=== PATIENT | female | born 2000 | race Two or more races ===

== ENCOUNTER 2022-01-31 17:05 | Observation (INO) | payer BC, OTHER ==
[~2022-01-31] VITALS: Ht 162.6 cm; Wt 95.3 kg
== END 2022-01-31 19:43 | disposition home or self-care (01) ==
LOC: LDRP 17:05
PROVIDERS: ADMIT Obstetrics & Gynecology Obstetrics; ATTEND Obstetrics & Gynecology Obstetrics
DX: O42.913 Preterm premature rupture of membranes, unspecified as to length of time between rupture and onset of labor, third trimester (principal); O62.9 Abnormality of forces of labor, unspecified; O26.893 Other specified pregnancy related conditions, third trimester; R11.0 Nausea; O99.891 Other specified diseases and conditions complicating pregnancy; M54.9 Dorsalgia, unspecified; Z3A.36 36 weeks gestation of pregnancy
CPT/HCPCS: 59025; 81002; 84112; 94760

== ENCOUNTER 2022-02-13 00:10 | Observation (INO) | payer BC ==
[2022-02-13] MEDS ORDERED: PRENCAP11 PO (00:42)
== END 2022-02-13 01:30 | disposition home or self-care (01) ==
LOC: LDRP 00:10
PROVIDERS: ADMIT Obstetrics & Gynecology Obstetrics; ATTEND Obstetrics & Gynecology Obstetrics
DX: O62.9 Abnormality of forces of labor, unspecified (principal); O99.891 Other specified diseases and conditions complicating pregnancy; M54.9 Dorsalgia, unspecified; O26.893 Other specified pregnancy related conditions, third trimester; H53.8 Other visual disturbances; Z3A.38 38 weeks gestation of pregnancy
CPT/HCPCS: 59025; 81002; 94760; G0378

== ENCOUNTER 2022-02-22 04:01 | Inpatient (IN) | payer BC ==
[~2022-02-22] VITALS: Ht 160 cm; Wt 10.0 kg
[~2022-02-22 04:01] MED LIST: PRENCAP11 PO
[2022-02-22] MEDS ORDERED: PHISODERM TOP SOLN 240ML BTL TOP PRN (04:45)
[2022-02-22] MEDS ORDERED: BUTORPHANOL TARTRATE 2 MG/1 ML VIAL IV PRN ×2 (04:45)
[2022-02-22] MEDS ORDERED: PENICILLIN G POT 5MIL/D5 50ML 50 ML IV ONE (04:45)
[2022-02-22] MEDS ORDERED: PROMETHAZINE HCL 25 MG/ML 1ML IV PRN (04:45)
[2022-02-22] MEDS ORDERED: LIDOCAINE 2%HCL (LOCAL ANESTH.) INJ 10ml MDV IJ PRN (04:45)
[2022-02-22] MEDS: LACTATED RINGER'S 1,000 ML IV SCH (05:08)
[2022-02-22 05:31] LABS: Basophils # (auto) 0.1 10 ^3/uL (0-0.2); Basophils % (auto) 0.5 % (0.0-2.0); Eosinophils # (auto) 0.1 10 ^3/uL (0-0.8); Eosinophils % (auto) 0.6 % (0.0-7.0); Hematocrit 37.1 % (36.0-46.0); Hemoglobin 12.9 g/dL (12.2-16.2); Lymphocytes # (auto) 2.6 10 ^3/uL (0.4-5.4); Lymphocytes % (auto) 18.7 % (10.0-50.0); Mean Corpuscular Hgb Conc. 34.6 g/dL (32.0-36.0); Mean Corpuscular Volume 89.6 fL (80.0-100.0); Monocytes # (auto) 0.8 10 ^3/uL (0-1.3); Monocytes % (auto) 5.7 % (0.0-12.0); Neutrophils # (auto) 10.4 10 ^3/uL (1.6-8.6); Neutrophils % (auto) 74.5 % (37.0-80.0); Nucleated Red Blood Cells % 0.1 %; Red Blood Cells 4.14 10^6/uL (4.0-5.20); Red Cell Distribution Width 13.5 % (11.8-14.3); Urine Bacteria FEW /hpf (None Seen); Urine Blood Negative /uL (Negative); Urine Mucus FEW (None Seen); Urine Specific Gravity 1.014 (1.001-1.035); Urine WBC 3 /hpf (0 - 5)
[2022-02-22 05:48] LABS: Albumin 2.6 g/dL (3.4-5.0); Calcium 8.7 mg/dL (8.5-10.1); Potassium 4.1 mmol/L (3.5-5.1)
[2022-02-22 05:49] LABS: Alcohol, Urine < 3.0 mg/dL (0-10); Amphetamine Screen, Urine NEGATIVE (NEGATIVE); Barbiturate Scree,Urine NEGATIVE (NEGATIVE); Benzodiazephine Screen, Urine NEGATIVE (NEGATIVE); Cannabinoid Screen, Urine NEGATIVE (NEGATIVE); Cocaine Screen, Urine NEGATIVE (NEGATIVE); Opiate Scree,Urine NEGATIVE (NEGATIVE); Phencyclidine Screen, Urine NEGATIVE (NEGATIVE)
[2022-02-22 05:52] LABS: Bilirubin, Total 0.2 mg/dL (0.2-1.0); Total Protein 6.1 g/dL (6.4-8.2)
[2022-02-22 05:53] LABS: INR 0.88 (0.9-1.15); Partial Thromboplastin Time 26.9 sec (24.6-33.4)
[2022-02-22] MEDS: miSOPROStol 50 MCG per PRE-CUT 1/2 TAB PO PRN ×3 (09:26→17:24)
[2022-02-22] MEDS: PENICILLIN G POTASSIUM 2,500,000 UNITS in D5W 5% 50 ML IV SCH ×4 (10:03→22:20)
[2022-02-22] MEDS ORDERED: ceFAZolin 1GM/50ML 50 ML IV ONE ×2 (19:00→19:30)
[2022-02-22] MEDS ORDERED: LIDOCAINE 2%HCL (LOCAL ANESTH.) INJ 20ML MDV ONE (19:49)
[2022-02-22] MEDS ORDERED: LACT. RINGERS/OXYTOCIN 20UNITS 500 ML IV ONE ×2 (21:30→22:00)
[2022-02-22] MEDS ORDERED: LACT. RINGERS/OXYTOCIN 20UNITS 1,000 ML IV SCH (21:30)
[2022-02-22] MEDS ORDERED: TERBUTALINE SULFATE 1 MG/ML 1ML VIAL SC PRN (21:30)
[2022-02-23] MEDS: LACTATED RINGER'S 1,000 ML IV SCH ×4 (01:30→12:45)
[2022-02-23] MEDS: PENICILLIN G POTASSIUM 2,500,000 UNITS in D5W 5% 50 ML IV SCH ×2 (02:16→05:58)
[2022-02-23] MEDS: ceFAZolin 1GM/50ML 50 ML IV SCH ×3 (03:23→19:29)
[2022-02-23 06:06] LABS: RPR Non Reactive (Non Reactive)
[2022-02-23] MEDS ORDERED: LIDOCAINE 2%HCL (LOCAL ANESTH.) INJ 20ML MDV ONE (09:07)
[2022-02-23] MEDS ORDERED: METHYLERGONOVINE MALEATE 0.2 MG/ML AMP IM ONE (09:13)
[2022-02-23] MEDS: WITCH HAZEL-GLYCERIN PAD TOP PRN (09:37)
[2022-02-23] MEDS: DERMOPLAST 60ML BOTTLE TOP PRN (09:37)
[2022-02-23] MEDS ORDERED: ONDANSETRON ODT 4 MG TAB PO PRN (12:15)
[2022-02-23] MEDS ORDERED: ACETAMINOPHEN 325 MG TAB PO PRN (12:15)
[2022-02-23] MEDS ORDERED: IBUPROFEN 600 MG TAB PO PRN (12:15)
[2022-02-23 15:00] VITALS: BP 123/56
[2022-02-23 19:00] VITALS: BP 124/71
[2022-02-23] MEDS ORDERED: DOCUSATE SOD 100 MG CAP PO SCH (22:00)
[2022-02-23 23:10] VITALS: BP 111/53
[2022-02-24 03:12] VITALS: BP 102/55
[2022-02-24] MEDS: ceFAZolin 1GM/50ML 50 ML IV SCH (03:33)
[2022-02-24 07:01] VITALS: BP 104/63
[2022-02-24 11:00] VITALS: BP 112/59
[2022-02-24] MEDS: DERMOPLAST 60ML BOTTLE TOP PRN (11:16)
[2022-02-24] MEDS: WITCH HAZEL-GLYCERIN PAD TOP PRN (11:16)
== END 2022-02-24 13:37 | disposition home or self-care (01) | DRG 807 ==
LOC: LDRP 04:01 → OBSVTOIN 04:25 → LDRP 04:32
PROVIDERS: ADMIT Obstetrics & Gynecology Obstetrics; ATTEND Obstetrics & Gynecology Obstetrics
PROC: 3E0DXGC Introduction of Other Therapeutic Substance into Mouth and Pharynx, External Approach (ICD-10-PCS; 2022-02-22)
PROC: 10A07ZX Abortion of Products of Conception, Abortifacient, Via Natural or Artificial Opening (ICD-10-PCS; 2022-02-22)
PROC: 10E0XZZ Delivery of Products of Conception, External Approach (ICD-10-PCS; principal; 2022-02-23)
PROC: 0KQM0ZZ Repair Perineum Muscle, Open Approach (ICD-10-PCS; 2022-02-23)
DX: O69.81X0 Labor and delivery complicated by cord around neck, without compression, not applicable or unspecified (principal); Z37.0 Single live birth; O77.0 Labor and delivery complicated by meconium in amniotic fluid; O70.1 Second degree perineal laceration during delivery; Z3A.39 39 weeks gestation of pregnancy; O99.824 Streptococcus B carrier state complicating childbirth; Z20.822 Contact with and (suspected) exposure to COVID-19
CPT/HCPCS: 36415; 59025; 59409; 80053; 80307; 81001; 81002; 84112; 85025; 85610; 85730; 86592; 86850; 86900; 86901; 87426; 94760; 94762; 96360; 96361; 96365; 96366; G0378; J0690; J2540; J2590; J7060

== ENCOUNTER 2024-04-10 19:19 | Emergency (ER) | payer BC ==
[~2024-04-10] VITALS: Ht 162.6 cm; Wt 82.3 kg
--- NOTE | 2024-04-10 19:48 | ED.PDOC ---
CAD DESIGN ENGINEER HPI Comments 23-year-old female presents to ER with complaints of fall injury x1 day. Wilian trishaann reports that she is currently 18 weeks , A0 and states that she tripped over her sons toy this morning and landed on her left side onto tile and has since been experiencing intermittent left sided back pain. Denies head injury/LOC. She rates her current pain a 7/10 to left lower lumbar region with radiation towards left lower pelvic region. Denies use of medications for current symptoms. Patient presents to ER ambulatory on arrival, with steady gait, in no distress and states her OBGYN is Dr. Roberts and has been following up with Dr. Roberts as directed, denying any known complications with current . Denies headache, neck pain, sob, chest pain, abdominal pain, n/v, numbness/tingling, vaginal bleeding/changes in urination or any further symptoms/complaints Time Seen by MD: 19:46 Primary Care Provider: UNKNOWN Reviewed Notes: Nurses Notes, Medications, Allergies Allergies: Coded Allergies: NO KNOWN ALLERGIES (Unverified , 01/31/22) Home Meds Active Scripts Cephalexin Monohydrate (Cephalexin) 500 Mg Cap, 1 CAP PO QID for 7 Days, #28 CAP 0 Refills Prov:PRASANNA BOBBY 04/10/24 Acetaminophen (Acetaminophen) 500 Mg Tab, 500 MG PO Q4HPRN, #30 TAB 0 Refills Prov:PRAASNNA BOBBY 04/10/24 Reported Medications Vit W/ Fe Fum-Iron Po (Concept Dha) Cap, 1 CAP PO DAILY, #90 CAP 3 Refills 02/13/22 Information Source: Patient Past Medical History Immunizations: Current Medical History: Denies Operations (others): denies Family History Family History: Unknown Social History Smoking: Non-Smoker Alcohol: Denies ETOH Use Drugs: Denies Drug Use Lives In: Home Constitutional: denies: chills, diaphoresis, fatigue, fever, malaise, sweats, weakness, others EENTM: denies: blurred vision, double vision, ear bleeding, ear discharge, ear drainage, ear pain, ear ringing, eye pain, eye redness, hearing loss, mouth pain, mouth swelling, nasal discharge, nose bleeding, nose congestion, nose pain, photophobia, tearing, throat pain, throat swelling, voice changes, others Respiratory: denies: cough, hemoptysis, orthopnea, SOB at rest, shortness of breath, SOB with excertion, stridor, wheezing, others Cardiovascular: denies: chest pain, dizzy spells, diaphoresis, Dyspnea on exertion, edema, irregular heart beat, left arm pain, lightheadedness, palpitations, PND, syncope, others Gastrointestinal: denies: abdomen distended, abdominal pain, blood streaked bowels, constipated, diarrhea, dysphagia, difficulty swallowing, hematemesis, melena, nausea, poor appetite, poor fluid intake, rectal bleeding, rectal pain, vomiting, others Genitourinary: reports: others (As stated in HPI) Neurological: denies: dizziness, fainting, headache, left sided numbness, left sided weakness, numbness, paresthesia, pre-existing deficit, right sided numbness, right sided weakness, seizure, speech problems, tingling, tremors, weakness, others Musculoskeletal: reports: others (As stated in HPI) Integumetry: denies: bruises, change in color, change in hair/nails, dryness, laceration, lesions, lumps, rash, wounds, others Allergic/Immunocompromised: denies: Difficulty Healing, Frequent Infections, Hives, Itching, others Hematologic/Lymphatic: denies: anemia, blood clots, easy bleeding, easy bruising, swollen glands, others Endocrine: denies: excessive hunger, excessive sweating, excessive thirst, excessive urination, flushing, intolerance to cold, intolerance to heat, unexplained weight gain, unexplained weight loss, others Psychiatric: denies: anxiety, bipolar disorder, depression, hopeless, panic disorder, schizophrenia, sleepless, suicidal, others Physical Exam General Appearance: No Apparent Distress, Obese HEENT: Normal ENT Inspection, PERRL/EOMI, Pharynx Normal, TMs Normal Neck: Full Range of Motion, Non-Tender, Normal Respiratory: Chest Non-Tender, Lungs Clear, No Accessory Muscle Use, No Respiratory Distress, Normal Breath Sounds Cardiovascular: No Murmur, No Gallop, Regular Rate/Rhythm Breast Exam: Deferred Gastrointestinal: No Organomegaly, Non Tender (TTP to abdomen/pelvic region noted), No Pulsatile Mass, Normal Bowel Sounds, Soft Genitalia: Deferred Pelvic: Deferred Rectal: Deferred Extremities: Normal capillary refill, Normal range of motion Musculoskeletal : Extremity Location: Back (Slight TTP to left lower lumbar region noted. No skin changes appreciated. Steady gait noted) Neurologic: Alert, social contact worker II-XII nml as Tested, No Motor Deficits, Normal Affect, Normal Mood, No Sensory Deficits Cerebellar Function: Normal Reflexes: Normal Skin: Dry, Normal Color, Warm Peripheral Pulses: 2+ Radial (R), 2+ Radial (L), 2+ Brachial (R), 2+ Brachial (L) Lymphatic: No Adenopathy Was a procedure done? Was a procedure done?: No Sedation Sedation?: No Differential Diagnosis (RECLAMATION WORKER) Vaginal Bleeding: - Incomplete, Placenta Previa, Trauma X-Ray, Labs, Meds, VS Vital Signs Date Time Temp Pulse Resp B/P (MAP) Pulse Ox O2 Delivery O2 Flow Rate FiO2 04/10/24 20:18 98 Room Air 0 04/10/24 19:45 98.8 91 18 115/47 (69) 98 Lab Test 04/10/24 19:53 04/10/24 19:40 Range/Units White Blood Count 10.5 4.4-10.8 10^3/uL Red Blood Count 3.99 L 4.0-5.20 10^6/uL Hemoglobin 12.6 12.2-16.2 g/dL Hematocrit 35.5 L 36.0-46.0 % Mean Corpuscular Volume 89.0 80.0-100.0 fL Mean Corpuscular Hemoglobin 31.5 28.0-32.0 pg Mean Corpuscular Hemoglobin Concent 35.5 32.0-36.0 g/dL Red Cell Distribution Width 12.9 11.8-14.3 % Platelet Count 212 140-450 10^3/uL Mean Platelet Volume 8.1 6.9-10.8 fL Neutrophils (%) (Auto) 70.0 37.0-80.0 % Lymphocytes (%) (Auto) 22.5 10.0-50.0 % Monocytes (%) (Auto) 5.6 0.0-12.0 % Eosinophils (%) (Auto) 1.8 0.0-7.0 % Basophils (%) (Auto) 0.1 0.0-2.0 % Neutrophils # (Auto) 7.3 1.6-8.6 10 ^3/uL Lymphocytes # (Auto) 2.4 0.4-5.4 10 ^3/uL Monocytes # (Auto) 0.6 0-1.3 10 ^3/uL Eosinophils # (Auto) 0.2 0-0.8 10 ^3/uL Basophils # (Auto) 0 0-0.2 10 ^3/uL Nucleated Red Blood Cells 0.0 % Sodium Level 141 136-145 mmol/L Potassium Level 4.2 3.5-5.1 mmol/L Chloride Level 105 98-107 mmol/L Carbon Dioxide Level 26 20-31 mmol/L Anion Gap 10 5-15 Blood Urea Nitrogen 12 9-23 mg/dL Creatinine 0.55 0.550-1.02 mg/dL Glomerular Filtration Rate Calc 132 >90 mL/min BUN/Creatinine Ratio 21.8 H 10.0-20.0 Serum Glucose 114 H 74-106 mg/dL Calcium Level 10.1 8.7-10.4 mg/dL Beta HCG, Quantitative 21420.2 H 1.5-4.2 mIU/mL Urine Color Colorless Yellow Urine Clarity Turbid H Clear Urine pH 7.0 5.0-9.0 Urine Specific [place] 1.015 1.001-1.035 Urine Protein Negative Negative Urine Ketones Negative Negative Urine Blood Negative Negative /uL Urine Nitrite Negative Negative Urine Bilirubin Negative Negative Urine Urobilinogen Normal Negative mg/dL Urine Leukocyte Esterase 2+ Negative /uL Urine RBC <1 0 - 4 /hpf Urine WBC 4 0 - 5 /hpf Urine Squamous Epithelial Cells Few <5 /hpf Urine Amorphous Crystals Few None Seen /hpf Urine Bacteria Few H None Seen /hpf Urine Glucose Normal Normal mg/dL PATIENT: GM BERMUEDZ ACCT: [id number] UNIT: [id number] : 2000 LOC: ER ROOM / BED: / AGE / SEX: 23 / F ADM STATUS: REG ER SERVICE 45 ORDERING PHYSICIAN: PRASANNA BOBBY PROCEDURE(s): OBUS - OB ULTRASOUND COMP GTR 14 WKS REASON: 18 weeks with pelvic pain s/p fall today ORDER NUMBER(s): [id number], ACCESSION NUMBER(s): [id number] Procedure: US OB ULTRASOUND COMP GTR 14 WKS 04/10/2024 08:14 PM HISTORY: 18 weeks with pelvic pain s/p fall today COMPARISON: None TECHNIQUE: Sonogram of the gravid uterus was performed. FINDINGS: Single living intrauterine gestation. 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 The following measurements were obtained: BPD: 4.4 cm corresponding to 19 weeks and 2 days HC: 15.7 cm corresponding to 18 weeks and 4 days AC: 13.6 cm corresponding to 19 weeks and 0 day FL: 2.8 cm corresponding to 18 weeks and 4 days Average ultrasound age: 18 weeks and 6 days MINE by ultrasound: 09/05/2024 Estimated weight: 257 g IMPRESSION: 1. Single currently living intrauterine gestation, as described above. ATED BY: SHEREE STUART MD DICTATED DATE/TIME: 04/10/242101 SIGNED BY: SHEREE STUART MD SIGNED DATE/TIME: 04/10/242101 CC: CBC REVIEWED WITHOUT ANY SIGNIFICANT ABNORMALITIES BMP REVIEWED WITHOUT ANY SIGNIFICANT ABNORMALITIES BETA HCG REVIEWED URINALYSIS REVIEWED-URINE LEUKOCYTE ESTERASE 2+, URINE BLOOD NEGATIVE, URINE NITRITES NEGATIVE OB ULTRASOUND REVIEWED PATIENT REPORTED IMPROVEMENT IN SYMPTOMS AND DENIED ANY ABDOMINAL/PELVIC PAIN PRIOR TO DISCHARGE ADVISED ON REST/NO STRENUOUS ACTIVITY ADVISED TO FOLLOW UP WITH PCP AND OBGYN IN 1-2 DAYS PATIENT VERBALIZED UNDERSTANDING AND AGREEABLE WITH CURRENT PLAN OF CARE ADVISED TO RETURN TO ER IMMEDIATELY IF SYMPTOMS WORSEN Images Reviewed?: Images reviewed and evaluated by me Time of 1ST Reevaluation: 20:22 Reevaluation 1ST: N/A Time of 2ND Reevaluation: 21:24 Reevaluation 2ND: Improved Patient Education/Counseling: Diagnosis, Treatment, Prognosis, Need For Follow Up Family Education/Counseling: No Family Present Departure 1 Departure Time of Disposition: 21:30 Impression: Primary Impression: Lumbar contusion Qualified Codes: S30.0XXA - Contusion of lower back and pelvis, initial encounter Additional Impressions: Second trimester UTI (urinary tract infection) Qualified Codes: N30.00 - Acute cystitis without hematuria Disposition: HOME / SELF CARE / HOMELESS Condition: Stable e-Prescriptions Cephalexin Monohydrate (Cephalexin) 500 Mg Cap 1 CAP PO QID for 7 Days, #28 CAP 0 Refills Prov: PRASANNA BOBBY 04/10/24 Acetaminophen (Acetaminophen) 500 Mg Tab 500 MG PO Q4HPRN, #30 TAB 0 Refills Prov: PRASANNA BOBBY 04/10/24 Discharged With: Self Critical Care Note Critical Care Time?: No Stability Stability form required: No PRASANNA BOBBY Apr 10, 2024 19:48
[2024-04-10 20:22] LABS: Basophils # (auto) 0 10 ^3/uL (0-0.2); Basophils % (auto) 0.1 % (0.0-2.0); Eosinophils # (auto) 0.2 10 ^3/uL (0-0.8); Eosinophils % (auto) 1.8 % (0.0-7.0); Hematocrit 35.5 % (36.0-46.0); Hemoglobin 12.6 g/dL (12.2-16.2); Lymphocytes # (auto) 2.4 10 ^3/uL (0.4-5.4); Lymphocytes % (auto) 22.5 % (10.0-50.0); Mean Corpuscular Hemoglobin 31.5 pg (28.0-32.0); Mean Corpuscular Hgb Conc. 35.5 g/dL (32.0-36.0); Monocytes # (auto) 0.6 10 ^3/uL (0-1.3); Monocytes % (auto) 5.6 % (0.0-12.0); Neutrophils # (auto) 7.3 10 ^3/uL (1.6-8.6); Platelet Count (auto) 212 10^3/uL (140-450); Red Blood Cells 3.99 10^6/uL (4.0-5.20); Red Cell Distribution Width 12.9 % (11.8-14.3); White Blood Cell 10.5 10^3/uL (4.4-10.8)
[2024-04-10 20:54] LABS: Urine Amorphous Crystal FEW /hpf (None Seen); Urine Bacteria FEW /hpf (None Seen); Urine Blood Negative /uL (Negative); Urine Clarity Turbid (Clear); Urine Color Colorless (Yellow); Urine Protein, UAD Negative (Negative); Urine Specific Gravity 1.015 (1.001-1.035); Urine Urobilinogen Normal (Negative); Urine WBC 4 /hpf (0 - 5)
--- NOTE | 2024-04-10 21:04 | DVH ---
Procedure: US OB ULTRASOUND COMP GTR 14 WKS 04/10/2024 08:14 PM HISTORY: 18 weeks with pelvic pain s/p fall today COMPARISON: None TECHNIQUE: Sonogram of the gravid uterus was performed. FINDINGS: Single living intrauterine gestation. 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 The following measurements were obtained: BPD: 4.4 cm corresponding to 19 weeks and 2 days HC: 15.7 cm corresponding to 18 weeks and 4 days AC: 13.6 cm corresponding to 19 weeks and 0 day FL: 2.8 cm corresponding to 18 weeks and 4 days Average ultrasound age: 18 weeks and 6 days MINE by ultrasound: 09/05/2024 Estimated weight: 257 g IMPRESSION: 1. Single currently living intrauterine gestation, as described above.
[2024-04-10 21:24] LABS: Chloride 105 mmol/L (98-107); Potassium 4.2 mmol/L (3.5-5.1); Sodium 141 mmol/L (136-145)
[2024-04-10 21:25] LABS: Anion Gap 10 (5-15); Carbon Dioxide 26 mmol/L (20-31)
[2024-04-10 21:26] LABS: Calcium 10.1 mg/dL (8.7-10.4)
[2024-04-10] MEDS ORDERED: CEPH500C PO (21:30)
[2024-04-10] MEDS ORDERED: ACET500T58 PO (21:30)
[2024-04-10 21:31] LABS: BUN/Creatinine Ratio 21.8 (10.0-20.0); Blood Urea Nitrogen 12 mg/dL (9-23)
[2024-04-10 21:36] LABS: Glucose 114 mg/dL (74-106)
[2024-04-10 22:07] VITALS: BP 109/77; PULSE 76; RESP 16; TEMP 98.5; O2SAT 99
== END 2024-04-10 22:12 | disposition home or self-care (01) ==
LOC: ER 19:19
DX: O99.891 Other specified diseases and conditions complicating pregnancy (principal); N39.0 Urinary tract infection, site not specified; Z3A.18 18 weeks gestation of pregnancy; Z79.899 Other long term (current) drug therapy
CPT/HCPCS: 36415; 76805; 80048; 81001; 84702; 85025

== ENCOUNTER 2024-05-17 11:48 | Observation (INO) | payer BC ==
[~2024-05-17 11:48] MED LIST changes: +ACET500T58 PO; +CEPH500C PO
--- NOTE | 2024-05-17 13:39 | DVHDS2 ---
Physician Discharge Progress N Final Diagnosis: cramping Operations or Procedures: Operations or Procedures nst,sono Condition on Discharge: Good Disposition: Home Discharge Instructions: Diet: Regular Activity: No Restrictions, As Tolerated Medications: na Follow Up Care: Specialist: 2d Discharge Statement: "Patient was advised to return to the ER or call 911 if any headaches, dizziness, shortness of breath, chest pain, abdominal pain, bleeding, fevers, or worsening of medical condition. Patient was counseled about treatment plan, medications, possible side effects, patientverbalized understanding. All questions were answered to the best of my ability. This discharge took greater then 30 minutes in planning, reviewing documentation, counseling the patient, and discussing with other team members." ALICIA MEJÍA DO May 17, 2024 13:39
== END 2024-05-17 13:15 | disposition home or self-care (01) ==
LOC: LDRP 11:48
PROVIDERS: ADMIT Obstetrics & Gynecology; ATTEND Obstetrics & Gynecology
DX: O26.892 Other specified pregnancy related conditions, second trimester (principal); R10.9 Unspecified abdominal pain; N89.8 Other specified noninflammatory disorders of vagina; Z79.899 Other long term (current) drug therapy; Z3A.24 24 weeks gestation of pregnancy
CPT/HCPCS: 59025; 81002; G0378

== ENCOUNTER 2024-08-07 11:40 | Observation (INO) | payer BC ==
--- NOTE | 2024-08-07 13:46 | DVH ---
BIOPHYSICAL PROFILE HISTORY: r/o abruption and accreda TECHNIQUE: Multiple transabdominal real-time grayscale sonographic images through the gravid uterus of the fetus with duplex Doppler color flow and M-mode spectral analysis FINDINGS: BIOPHYSICAL PROFILE: breathing score: 2 movement score: 2 tone score: 2 Quantitative GARRET score: 2 (GARRET: 13 Cm.) Total score: 8 Single live fetus in cephalic presentation. heart rate 123 beats per minute. Grade I posterior placenta without previa or abruption IMPRESSION: Biophysical profile score: 8/8
--- NOTE | 2024-08-08 12:45 | DVHDS2 ---
Physician Discharge Progress N Final Diagnosis: bleeding 35wks Operations or Procedures: Operations or Procedures nst,sono Condition on Discharge: Good Disposition: Home Discharge Instructions: Diet: Regular Activity: Light activity Medications: na Follow Up Care: Specialist: 1w Discharge Statement: "Patient was advised to return to the ER or call 911 if any headaches, dizz iness, shortness of breath, chest pain, abdominal pain, bleeding, fevers, or worsening of medical condition. Patient was counseled about treatment plan, medications, possible side effects, patientverbalized understanding. All questions were answered to the best of my ability. This discharge took greater then 30 minutes in planning, reviewing documentation, counseling the patient, and discussing with other team members." Visit Coding OBGYN Date of Service: Aug 08, 2024 Billing Provider: ALICIA MEJÍA DO C[employer] C[employer]P Common Visit Codes: 75923-[id number] OBS CARE (HIGH) [employer] Procedure Codes: 92189-42- NON-STRESS TEST ALICIA MEJÍA DO Aug 08, 2024 12:45
== END 2024-08-07 13:46 | disposition home or self-care (01) ==
LOC: LDRP 11:40
PROVIDERS: ADMIT Obstetrics & Gynecology; ATTEND Obstetrics & Gynecology
DX: O46.93 Antepartum hemorrhage, unspecified, third trimester (principal); O62.9 Abnormality of forces of labor, unspecified; Z3A.35 35 weeks gestation of pregnancy; Z79.899 Other long term (current) drug therapy
CPT/HCPCS: 76818; 81002; 94760; G0378; 76819

== ENCOUNTER 2024-08-27 10:35 | Observation (INO) | payer BC ==
[2024-08-27 12:30] LABS: Basophils # (auto) 0 10 ^3/uL (0-0.2); Basophils % (auto) 0.3 % (0.0-2.0); Eosinophils # (auto) 0.1 10 ^3/uL (0-0.8); Eosinophils % (auto) 0.7 % (0.0-7.0); Hematocrit 35.9 % (36.0-46.0); Hemoglobin 12.4 g/dL (12.2-16.2); Lymphocytes # (auto) 1.7 10 ^3/uL (0.4-5.4); Lymphocytes % (auto) 15.1 % (10.0-50.0); Mean Corpuscular Hemoglobin 30.9 pg (28.0-32.0); Mean Corpuscular Hgb Conc. 34.5 g/dL (32.0-36.0); Mean Corpuscular Volume 89.5 fL (80.0-100.0); Monocytes # (auto) 0.6 10 ^3/uL (0-1.3); Monocytes % (auto) 4.8 % (0.0-12.0); Neutrophils # (auto) 9.2 10 ^3/uL (1.6-8.6); Neutrophils % (auto) 79.1 % (37.0-80.0); Platelet Count (auto) 212 10^3/uL (140-450); Red Blood Cells 4.01 10^6/uL (4.0-5.20); Red Cell Distribution Width 13.3 % (11.8-14.3); White Blood Cell 11.6 10^3/uL (4.4-10.8)
[2024-08-27 12:49] LABS: INR 0.93 (0.9-1.15); Prothrombin Time 9.9 sec (9.3-11.8)
[2024-08-27 12:53] LABS: Urine Bacteria FEW /hpf (None Seen); Urine Blood Negative /uL (Negative); Urine Clarity Clear (Clear); Urine Color Colorless (Yellow); Urine Protein, UAD Negative (Negative); Urine Specific Gravity 1.006 (1.001-1.035); Urine Squamous Epithelial Cell MOD /hpf (<5); Urine Urobilinogen Normal (Negative); Urine WBC 4 /HPF (0-5); Urine pH 6.5 (5.0-9.0)
[2024-08-27 12:57] LABS: Alanine Aminotransferase 13 U/L (7-40); Alkaline Phosphatase 86 U/L (46-116); Anion Gap 8 (5-15); Aspartate Aminotransferase 16 U/L (13-40); BUN/Creatinine Ratio 20.8 (10.0-20.0); Blood Urea Nitrogen 10 mg/dL (9-23); Calcium 9.7 mg/dL (8.7-10.4); Carbon Dioxide 21 mmol/L (20-31); Chloride 108 mmol/L (98-107); Glucose 113 mg/dL (74-106); Potassium 3.9 mmol/L (3.5-5.1); Sodium 137 mmol/L (136-145); Total Protein 6.6 g/dL (5.7-8.2); Uric Acid 3.8 mg/dL (3.1-7.8)
[2024-08-27 12:58] LABS: Bilirubin, Total 0.4 mg/dL (0.2-1.0)
[2024-08-27 13:04] LABS: Protein, Urine < 6.0 mg/dL (1-14)
[2024-08-27 13:06] LABS: Creatinine, Urine 17.32 mg/dL (30.0-125.0); Urine Protein/Creatinine Ratio 0.35
--- NOTE | 2024-08-27 14:26 | DVH ---
Procedure: US BIOPHYSICAL PROFILE 08/27/2024 12:37 PM Indication: PIH Comparison: US BIOPHYSICAL PROFILE on DOS: 08/07/24 Technique: Sonogram of gravid uterus utilizing grayscale and color techniques. FINDINGS: Single living intrauterine gestation. Presentation: Cephalic Placenta: Posterior heart rate: 134 bpm GARRET: 13 cm, DVP: 4.8 cm Maternal cervix: Closed, 5.4 cm in length Biophysical Profile: breathing score: 2 movement score: 2 tone: 2 Quantitative GARRET score: 2 Total score: 8/8 IMPRESSION: 1. Single living as above. 2. Biophysical profile score: 8/8.
--- NOTE | 2024-08-27 23:23 | DVHDS2 ---
Physician Discharge Progress N Final Diagnosis: NST/BPP/preeclampsia labs Operations or Procedures: Operations or Procedures 23yo IUP@38.4wks sent down from Dr. Roberts's office for PreE labs. Denies UCs/LOF/VB/FERGUSON/vision changes/RUQ pain. Endorses +FM. VSS, normotensive NST reactive kick counts and Preeclampsia warning signs reviewed. Labor precautions given and when to return to the hospital. F/u on wednesday 08/30 with [address] Roberts consulted, agrees with POC. Urine P/C ratio incalculable Laboratory Tests Test 08/27/24 11:29 08/27/24 12:15 Range/Units Urine Color Colorless Yellow Urine Clarity Clear Clear Urine pH 6.5 5.0-9.0 Urine Specific [place] 1.006 1.001-1.035 Urine Protein Negative Negative Urine Ketones Negative Negative Urine Blood Negative Negative /uL Urine Nitrite Negative Negative Urine Bilirubin Negative Negative Urine Urobilinogen Normal Negative mg/dL Urine Leukocyte Esterase 2+ Negative /uL Urine RBC 1 0 - 4 /hpf Urine Microscopic WBC 4 0-5 /HPF Urine Squamous Epithelial Cells Mod <5 /hpf Urine Bacteria Few H None Seen /hpf Urine Creatinine 17.32 L 30.0-125.0 mg/dL -U-r-i-n-e- -H-j-r-t-e-i-n-/-B-r-z-n-y-y-n-i-n-e- -R-a-t-i-o- -0-.-3-5- Urine Glucose Normal Normal mg/dL Urine Total Protein < 6.0 1-14 mg/dL White Blood Count 11.6 H 4.4-10.8 10^3/uL Red Blood Count 4.01 4.0-5.20 10^6/uL Hemoglobin 12.4 12.2-16.2 g/dL Hematocrit 35.9 L 36.0-46.0 % Mean Corpuscular Volume 89.5 80.0-100.0 fL Mean Corpuscular Hemoglobin 30.9 28.0-32.0 pg Mean Corpuscular Hemoglobin Concent 34.5 32.0-36.0 g/dL Red Cell Distribution Width 13.3 11.8-14.3 % Platelet Count 212 140-450 10^3/uL Mean Platelet Volume 7.7 6.9-10.8 fL Neutrophils (%) (Auto) 79.1 37.0-80.0 % Lymphocytes (%) (Auto) 15.1 10.0-50.0 % Monocytes (%) (Auto) 4.8 0.0-12.0 % Eosinophils (%) (Auto) 0.7 0.0-7.0 % Basophils (%) (Auto) 0.3 0.0-2.0 % Neutrophils # (Auto) 9.2 H 1.6-8.6 10 ^3/uL Lymphocytes # (Auto) 1.7 0.4-5.4 10 ^3/uL Monocytes # (Auto) 0.6 0-1.3 10 ^3/uL Eosinophils # (Auto) 0.1 0-0.8 10 ^3/uL Basophils # (Auto) 0 0-0.2 10 ^3/uL Nucleated Red Blood Cells 0.0 % Prothrombin Time 9.9 9.3-11.8 sec Prothrombin Time INR 0.93 0.9-1.15 Activated Partial Thromboplast Time 29.0 24.5-34.5 SEC Sodium Level 137 136-145 mmol/L Potassium Level 3.9 3.5-5.1 mmol/L Chloride Level 108 H 98-107 mmol/L Carbon Dioxide Level 21 20-31 mmol/L Anion Gap 8 5-15 Blood Urea Nitrogen 10 9-23 mg/dL Creatinine 0.48 L 0.550-1.02 mg/dL Glomerular Filtration Rate Calc 136 >90 mL/min BUN/Creatinine Ratio 20.8 H 10.0-20.0 Serum Glucose 113 H 74-106 mg/dL Uric Acid 3.8 3.1-7.8 mg/dL Calcium Level 9.7 8.7-10.4 mg/dL Total Bilirubin 0.4 0.2-1.0 mg/dL Aspartate Amino Transferase (AST) 16 13-40 U/L Alanine Aminotransferase (ALT) 13 7-40 U/L Alkaline Phosphatase 86 46-116 U/L Total Protein 6.6 5.7-8.2 g/dL Albumin 4.0 3.2-4.8 g/dL Other Interventions Other Interventions [facility] [id number] [facility] [address] Ph: [phone] DIAGNOSTIC IMAGING Diagnostic Imaging Report : [id number] Signed PATIENT: GM BERMUDEZ ACCT: [id number] UNIT: [id number] : 2000 LOC: [facility] ROOM / BED: TRIAGE2 / A AGE / SEX: 23 / F ADM STATUS: DIS IN SERVICE 1209 ORDERING PHYSICIAN: EMELIA LOVETT CNM PROCEDURE(s): BPP - BIOPHYSICAL PROFILE REASON: PIH ORDER NUMBER(s): [id number], ACCESSION NUMBER(s): [id number] Procedure: US BIOPHYSICAL PROFILE 08/27/2024 12:37 PM Indication: PIH Comparison: US BIOPHYSICAL PROFILE on DOS: 08/07/24 Technique: Sonogram of gravid uterus utilizing grayscale and color techniques. FINDINGS: Single living intrauterine gestation. Presentation: Cephalic Placenta: Posterior heart rate: 134 bpm GARRET: 13 cm, DVP: 4.8 cm Maternal cervix: Closed, 5.4 cm in length Biophysical Profile: breathing score: 2 movement score: 2 tone: 2 Quantitative GARRET score: 2 Total score: 8/8 IMPRESSION: 1. Single living as above. 2. Biophysical profile score: 8/8. ATED BY: SHEREE STUART MD DICTATED DATE/TIME: 08/27/241422 SIGNED BY: SHEREE STUART MD SIGNED DATE/TIME: 08/27/24 142 CC: Condition on Discharge: Stable Disposition: Home Discharge Instructions: Diet: Regular Activity: No Restrictions, As Tolerated Medications: see med list Follow Up Care: Specialist: f/u on 08/30/24 Discharge Statement: "Patient was advised to return to the ER or call 911 if any headaches, dizziness, shortness of breath, chest pain, abdominal pain, bleeding, fevers, or worsening of medical condition. Patient was counseled about treatment plan, medications, possible side effects, patientverbalized understanding. All questions were answered to the best of my ability. This discharge took greater then 30 minutes in planning, reviewing documentation, counseling the patient, and discussing with other team members." Visit Coding OBGYN Date of Service: Aug 27, 2024 Billing Provider: EMELIA LOVETT CNM PHP WEB DEVELOPER Common Visit Codes: [id number] OBS CARE (HIGH) PHP WEB DEVELOPER Procedure Codes: 36541-35- NON-STRESS TEST EMELIA LOVETT CNM Aug 27, 2024 23:23
== END 2024-08-27 14:00 | disposition home or self-care (01) ==
LOC: LDRP 10:35
PROVIDERS: ADMIT Obstetrics & Gynecology; ATTEND Obstetrics & Gynecology
DX: O13.3 Gestational [pregnancy-induced] hypertension without significant proteinuria, third trimester (principal); Z98.890 Other specified postprocedural states; Z79.899 Other long term (current) drug therapy; Z3A.38 38 weeks gestation of pregnancy
CPT/HCPCS: 36415; 76818; 80053; 81001; 81002; 82570; 84156; 84550; 85025; 85610; 85730; G0378; 76819

== ENCOUNTER 2024-08-30 06:35 | Observation (INO) | payer BC ==
[~2024-08-30] VITALS: Ht 160 cm; Wt 81.6 kg
[2024-08-30 11:37] LABS: Basophils # (auto) 0 10 ^3/uL (0-0.2); Basophils % (auto) 0.3 % (0.0-2.0); Eosinophils # (auto) 0.1 10 ^3/uL (0-0.8); Eosinophils % (auto) 0.8 % (0.0-7.0); Hematocrit 33.7 % (36.0-46.0); Hemoglobin 11.9 g/dL (12.2-16.2); Lymphocytes # (auto) 1.6 10 ^3/uL (0.4-5.4); Lymphocytes % (auto) 14.1 % (10.0-50.0); Mean Corpuscular Hemoglobin 31.5 pg (28.0-32.0); Mean Corpuscular Hgb Conc. 35.2 g/dL (32.0-36.0); Mean Corpuscular Volume 89.6 fL (80.0-100.0); Monocytes # (auto) 0.6 10 ^3/uL (0-1.3); Monocytes % (auto) 5.5 % (0.0-12.0); Neutrophils # (auto) 8.9 10 ^3/uL (1.6-8.6); Neutrophils % (auto) 79.3 % (37.0-80.0); Platelet Count (auto) 214 10^3/uL (140-450); Red Blood Cells 3.76 10^6/uL (4.0-5.20); Red Cell Distribution Width 13.3 % (11.8-14.3); White Blood Cell 11.2 10^3/uL (4.4-10.8)
[2024-08-30 11:39] LABS: Urine Bacteria FEW /hpf (None Seen); Urine Blood Negative /uL (Negative); Urine Clarity Clear (Clear); Urine Color Light-Yellow (Yellow); Urine Mucus FEW (None Seen); Urine Protein, UAD Negative (Negative); Urine Specific Gravity 1.017 (1.001-1.035); Urine Squamous Epithelial Cell FEW /hpf (<5); Urine Urobilinogen Normal (Negative); Urine WBC 16 /HPF (0-5)
[2024-08-30 11:46] LABS: Protein, Urine 9.4 mg/dL (1-14)
[2024-08-30 11:49] LABS: Creatinine, Urine 49.59 mg/dL (30.0-125.0); Urine Protein/Creatinine Ratio 0.19
[2024-08-30 11:56] LABS: INR 0.92 (0.9-1.15); Partial Thromboplastin Time 28.5 SEC (24.5-34.5); Prothrombin Time 9.8 sec (9.3-11.8)
[2024-08-30 11:58] LABS: Alanine Aminotransferase 13 U/L (7-40); Albumin 3.7 g/dL (3.2-4.8); Alkaline Phosphatase 85 U/L (46-116); Anion Gap 6 (5-15); Aspartate Aminotransferase 13 U/L (13-40); BUN/Creatinine Ratio 25.5 (10.0-20.0); Blood Urea Nitrogen 12 mg/dL (9-23); Calcium 9.3 mg/dL (8.7-10.4); Carbon Dioxide 22 mmol/L (20-31); Potassium 3.8 mmol/L (3.5-5.1); Sodium 137 mmol/L (136-145); Total Protein 5.8 g/dL (5.7-8.2); Uric Acid 3.5 mg/dL (3.1-7.8)
[2024-08-30 11:59] LABS: Bilirubin, Total 0.3 mg/dL (0.2-1.0); Chloride 109 mmol/L (98-107); Glucose 111 mg/dL (74-106)
--- NOTE | 2024-08-30 12:05 | DVH ---
Procedure: US BIOPHYSICAL PROFILE 08/30/2024 11:37 AM Indication: Rule out PIH Comparison: US BIOPHYSICAL PROFILE on DOS: 08/27/24, US BIOPHYSICAL PROFILE on DOS: 08/07/24 Technique: Sonogram of gravid uterus utilizing grayscale and color techniques. FINDINGS: Single living intrauterine gestation. Presentation: Cephalic Placenta: Posterior, grade 2 heart rate: 152 bpm GARRET: 11.8 cm, DVP: 4.8 cm Maternal cervix: Not visualized Biophysical Profile: breathing score: 2 movement score: 2 tone: 2 Quantitative GARRET score: 2 Total score: 8/8 IMPRESSION: 1. Single living as above. 2. Biophysical profile score: 8/8.
[2024-08-30 12:40] LABS: Body Surface Area 2.09
[2024-08-30 12:46] LABS: 24 Hr. Total Protein, Urine 398.6 mg/24 Hr (<149.1); Protein, Urine 11.9 mg/dL (1-14)
[2024-08-30 12:48] LABS: Creatinine Clearance, Urine 230.42 mL/min (75-115); Creatinine, Urine 56.24 mg/dL (30.0-125.0)
--- NOTE | 2024-08-31 07:48 | DVHDS2 ---
Physician Discharge Progress N Final Diagnosis: pih ruled out 37wks Operations or Procedures: Operations or Procedures nst reactive reviewed Condition on Discharge: Good Disposition: Home Discharge Instructions: Diet: Regular Activity: No Restrictions, As Tolerated Follow Up/Referral: follow up tomorrow Medications: na Follow Up Care: Specialist: 1d Discharge Statement: "Patient was advised to return to the ER or call 911 if any headaches, dizziness, shortness of breath, chest pain, abdominal pain, bleeding, fevers, or worsening of medical condition. Patient was counseled about treatment plan, medications, possible side effects, patientverbalized understanding. All questions were answered to the best of my ability. This discharge took greater then 30 minutes in planning, reviewing documentation, counseling the patient, and discussing with other team members." Visit Coding OBGYN Date of Service: August 30, 2024 Billing Provider: ALICIA MEJÍA DO TABLE GAMES DEALER Common Visit Codes: [id number] OBS CARE (HIGH) TABLE GAMES DEALER Procedure Codes: 41074-54- NON-STRESS TEST ALICIA MEJÍA DO August 31, 2024 07:48
== END 2024-08-30 13:45 | disposition home or self-care (01) ==
LOC: LDRP 10:51
PROVIDERS: ADMIT Obstetrics & Gynecology; ATTEND Obstetrics & Gynecology
DX: O13.3 Gestational [pregnancy-induced] hypertension without significant proteinuria, third trimester (principal); Z98.890 Other specified postprocedural states; Z79.899 Other long term (current) drug therapy; Z3A.37 37 weeks gestation of pregnancy
CPT/HCPCS: 36415; 76818; 80053; 81001; 81002; 82570; 82575; 84156; 84550; 85025; 85610; 85730; G0378; 59025; 76819

== ENCOUNTER 2024-08-31 12:59 | Observation (INO) | payer BC ==
--- NOTE | 2024-08-31 13:50 | DVH ---
BIOPHYSICAL PROFILE HISTORY: R/O PIH Comparison Study: TECHNIQUE: Multiple real-time grayscale sonographic images through the gravid uterus of the fetus wi th duplex Doppler color flow and M-mode spectral analysis FINDINGS: BIOPHYSICAL PROFILE: breathing score: 2 movement score: 2 tone score: 2 Quantitative GARRET score: 2 (GARRET: 14.5 Cm.) Total score: 8 Single live fetus in cephalic presentation. heart rate 155 beats per minute. No placenta without previa or abruption Posterior placenta. Biophysical profile score 8/8 IMPRESSION: 1. Biophysical profile score: 8/8
--- NOTE | 2024-08-31 18:29 | DVHDS2 ---
Discharge Summary Date of Admission August 31, 2024 at 12:59 Date of Discharge: August 31, 2024 Admitting Diagnosis Hx non reactive NST here for eval of Brief Hx & Hospital Course: Patient here for NST ultrasound Condition at Discharge: Good Final Diagnosis/Problems List Reassuring heart tones and ultrasound Discharge Disposition: Home Discharge Instruct/Medications Diet: Regular Activity: No Restrictions, As Tolerated Follow Up/Referral: As scheduled Discharge Statement: "Patient was advised to return to the ER or call 911 if any headaches, dizziness, shortness of breath, chest pain, abdominal pain, bleeding, fevers, or worsening of medical condition. Patient was counseled about treatment plan, medications, possible side effects, patient�verbalized understanding. All questions were answered to the best of my ability. This discharge took greater then 30 minutes in planning, reviewing documentation, counseling the patient, and discussing with other team members." DME: Diagnosis: Thirty-nine weeks reassuring heart tones ASSESSMENT ASSESSMENT Assessment Visit Coding OBGYN Date of Service: August 31, 2024 Billing Provider: GIULIANO MCKAY DO [employer] Common Visit Codes: 32882-RDR/OBS SAME DATE (LOW), 16401-ZAS/OBS SAME DATE (MOD), 90587-BEX/OBS SAME DATE (HIGH) [employer] Procedure Codes: 73061-09- NON-STRESS TEST GIULIANO MCKAY DO August 31, 2024 18:29
== END 2024-08-31 14:55 | disposition home or self-care (01) ==
LOC: LDRP 12:59
PROVIDERS: ADMIT Obstetrics & Gynecology; ATTEND Obstetrics & Gynecology
DX: Z36.89 Encounter for other specified antenatal screening (principal); Z98.890 Other specified postprocedural states; Z79.899 Other long term (current) drug therapy; Z3A.39 39 weeks gestation of pregnancy
CPT/HCPCS: 76818; 81002; G0378; 59025; 76819

== ENCOUNTER 2024-09-06 06:46 | Observation (INO) | payer BC ==
--- NOTE | 2024-09-06 12:01 | DVH ---
BIOPHYSICAL PROFILE HISTORY: Postdates TECHNIQUE: Multiple transabdominal real-time grayscale sonographic images through the gravid uterus of the fetus with duplex Doppler color flow and M-mode spectral analysis FINDINGS: BIOPHYSICAL PROFILE: breathing score: 2 movement score: 2 tone score: 2 Quantitative GARRET score: 2 (GARRET: 16.1 Cm.) Total score: 8 The cervix not well visualized Single live fetus in cephalic presentation. heart rate 147 beats per minute. Posterior placenta without previa or abruption IMPRESSION: Biophysical profile score: 8
--- NOTE | 2024-09-07 08:11 | DVHDS2 ---
Physician Discharge Progress N Final Diagnosis: iup at 40wks labor check Operations or Procedures: Operations or Procedures nst reactive reviwed Condition on Discharge: Good Disposition: Home Discharge Instructions: Diet: Regular Activity: No Restrictions, As Tolerated Medications: na Follow Up Care: Specialist: 2d Discharge Statement: "Patient was advised to return to the ER or call 911 if any headaches, dizziness, shortness of breath, chest pain, abdominal pain, bleeding, fevers, or worsening of medical condition. Patient was counseled about treatment plan, medications, possible side effects, patientverbalized understanding. All questions were answered to the best of my ability. This discharge took greater then 30 minutes in planning, reviewing documentation, counseling the patient, and discussing with other team members." Visit Coding OBGYN Date of Service: September 06, 2024 Billing Provider: ALICIA MEJÍA DO OFFICE SUPPORT CLERK Common Visit Codes: [id number] INP/OBS CARE (HIGH) OFFICE SUPPORT CLERK Procedure Codes: 02727-43- NON-STRESS TEST ALICIA MEJÍA DO September 07, 2024 08:11
== END 2024-09-06 12:39 | disposition home or self-care (01) ==
LOC: LDRP 10:30
PROVIDERS: ADMIT Obstetrics & Gynecology; ATTEND Obstetrics & Gynecology
DX: O60.03 Preterm labor without delivery, third trimester (principal); Z3A.40 40 weeks gestation of pregnancy; Z79.899 Other long term (current) drug therapy; Z98.890 Other specified postprocedural states
CPT/HCPCS: 76818; 81002; 94760; G0378; 76819

== ENCOUNTER 2024-09-09 06:45 | Observation (INO) | payer BC ==
[~2024-09-09] VITALS: Ht 160 cm; Wt 108.9 kg
[2024-09-09] MEDS ORDERED: PENICILLIN G POT 5MIL/D5 50ML 50 ML IV ONE (08:30)
[2024-09-09] MEDS ORDERED: NALBUPHINE HCL 10 MG/1ml INJECTION IV PRN (08:30)
[2024-09-09] MEDS ORDERED: PHISODERM TOP SOLN 240ML BTL TOP PRN (08:30)
[2024-09-09] MEDS ORDERED: LIDOCAINE 2%HCL (LOCAL ANESTH.) INJ 20ML MDV IJ PRN (08:30)
[2024-09-09] MEDS ORDERED: DERMOPLAST 60ML BOTTLE TOP PRN (08:30)
[2024-09-09] MEDS ORDERED: WITCH HAZEL-GLYCERIN PAD TOP PRN (08:30)
[2024-09-09 08:52] LABS: Urine Bacteria None Seen /hpf (None Seen)
[2024-09-09 09:01] LABS: Basophils # (auto) 0 10 ^3/uL (0-0.2); Basophils % (auto) 0.3 % (0.0-2.0); Eosinophils # (auto) 0.1 10 ^3/uL (0-0.8); Eosinophils % (auto) 0.9 % (0.0-7.0); Hematocrit 37.4 % (36.0-46.0); Hemoglobin 13.1 g/dL (12.2-16.2); Lymphocytes % (auto) 16.6 % (10.0-50.0); Mean Corpuscular Hemoglobin 31.5 pg (28.0-32.0); Mean Corpuscular Hgb Conc. 35.1 g/dL (32.0-36.0); Mean Corpuscular Volume 89.7 fL (80.0-100.0); Monocytes # (auto) 0.4 10 ^3/uL (0-1.3); Monocytes % (auto) 3.3 % (0.0-12.0); Neutrophils # (auto) 9.6 10 ^3/uL (1.6-8.6); Neutrophils % (auto) 78.9 % (37.0-80.0); Nucleated Red Blood Cells % 0.1 %; Platelet Count (auto) 212 10^3/uL (140-450); Red Blood Cells 4.17 10^6/uL (4.0-5.20); Red Cell Distribution Width 13.3 % (11.8-14.3); White Blood Cell 12.2 10^3/uL (4.4-10.8)
[2024-09-09 09:09] LABS: Urine Blood Negative /uL (Negative); Urine Clarity Turbid (Clear); Urine Color Light-Yellow (Yellow); Urine Protein, UAD Negative (Negative); Urine Specific Gravity 1.014 (1.001-1.035); Urine Squamous Epithelial Cell MOD /hpf (<5); Urine Urobilinogen Normal (Negative); Urine WBC 13 /HPF (0-5); Urine pH 6.5 (5.0-9.0)
[2024-09-09 09:14] LABS: Amphetamine Screen, Urine Neg (NEGATIVE); Barbiturate Scree,Urine Neg (NEGATIVE); Benzodiazephine Screen, Urine Neg (NEGATIVE); Cocaine Screen, Urine Neg (NEGATIVE); Opiate Scree,Urine Neg (NEGATIVE)
[2024-09-09 09:15] LABS: Cannabinoid Screen, Urine Neg (NEGATIVE); Phencyclidine Screen, Urine Neg (NEGATIVE)
[2024-09-09 09:16] LABS: Alanine Aminotransferase 16 U/L (7-40); Alkaline Phosphatase 106 U/L (46-116); Carbon Dioxide 23 mmol/L (20-31); Chloride 104 mmol/L (98-107)
[2024-09-09 09:17] LABS: Albumin 4.2 g/dL (3.2-4.8); Anion Gap 11 (5-15); Aspartate Aminotransferase 15 U/L (13-40); BUN/Creatinine Ratio 16.9 (10.0-20.0); Bilirubin, Total 0.4 mg/dL (0.2-1.0); Blood Urea Nitrogen 10 mg/dL (9-23); INR 0.92 (0.9-1.15); Partial Thromboplastin Time 27.6 SEC (24.5-34.5); Potassium 3.6 mmol/L (3.5-5.1); Prothrombin Time 9.8 sec (9.3-11.8); Sodium 138 mmol/L (136-145); Total Protein 6.8 g/dL (5.7-8.2)
[2024-09-09 09:18] LABS: Glucose 149 mg/dL (74-106)
[2024-09-09] MEDS: miSOPROStol 50 MCG per PRE-CUT 1/2 TAB PO PRN (09:35)
[2024-09-09] MEDS: LACTATED RINGER'S 1,000 ML IV SCH (09:36)
[2024-09-09] MEDS ORDERED: PENICILLIN G POTASSIUM 2,500,000 UNITS in D5W 5% 50 ML IV SCH (12:30)
--- NOTE | 2024-09-09 19:23 | DVH ---
OB ULTRASOUND, LIMITED CLINICAL INDICATION: post dates TECHNIQUE: Multiple grayscale ultrasound and M-mode images were obtained of the pelvis for evaluation of intrauterine . COMPARISON: US BIOPHYSICAL PROFILE on DOS: 09/06/24, US BIOPHYSICAL PROFILE on DOS: 08/31/24, US BIOPHYSI AKASH PROFILE on DOS: 08/30/24 FINDINGS: A single living fetus is seen in cephalic presentation. Biophysical profile: 12/06 breathin movements: 2 tone: 2 Amniotic fluid: 2 Placenta: Posterior. Amniotic fluid: Visibly normal. GARRET 11.2 cm heart rate: 150 beats/min. A complete anatomic survey was not performed on this exam. IMPRESSION: Biophysical profile: 12/06
--- NOTE | 2024-09-10 05:13 | DVHDS2 ---
Discharge Summary Date of Admission September 09, 2024 at 08:07 Date of Discharge: September 09, 2024 Admitting Diagnosis induction post dates Labs/Diagnostic Data: Laboratory Results Test 09/09/24 08:31 09/09/24 08:25 White Blood Count 12.2 10^3/uL (4.4-10.8) Red Blood Count 4.17 10^6/uL (4.0-5.20) Hemoglobin 13.1 g/dL (12.2-16.2) Hematocrit 37.4 % (36.0-46.0) Mean Corpuscular Volume 89.7 fL (80.0-100.0) Mean Corpuscular Hemoglobin 31.5 pg (28.0-32.0) Mean Corpuscular Hemoglobin Concent 35.1 g/dL (32.0-36.0) Red Cell Distribution Width 13.3 % (11.8-14.3) Platelet Count 212 10^3/uL (140-450) Mean Platelet Volume 7.9 fL (6.9-10.8) Neutrophils (%) (Auto) 78.9 % (37.0-80.0) Lymphocytes (%) (Auto) 16.6 % (10.0-50.0) Monocytes (%) (Auto) 3.3 % (0.0-12.0) Eosinophils (%) (Auto) 0.9 % (0.0-7.0) Basophils (%) (Auto) 0.3 % (0.0-2.0) Neutrophils # (Auto) 9.6 10 ^3/uL (1.6-8.6) Lymphocytes # (Auto) 2.0 10 ^3/uL (0.4-5.4) Monocytes # (Auto) 0.4 10 ^3/uL (0-1.3) Eosinophils # (Auto) 0.1 10 ^3/uL (0-0.8) Basophils # (Auto) 0 10 ^3/uL (0-0.2) Nucleated Red Blood Cells 0.1 % Prothrombin Time 9.8 sec (9.3-11.8) Prothrombin Time INR 0.92 (0.9-1.15) Activated Partial Thromboplast Time 27.6 SEC (24.5-34.5) Sodium Level 138 mmol/L (136-145) Potassium Level 3.6 mmol/L (3.5-5.1) Chloride Level 104 mmol/L (98-107) Carbon Dioxide Level 23 mmol/L (20-31) Anion Gap 11 (5-15) Blood Urea Nitrogen 10 mg/dL (9-23) Creatinine 0.59 mg/dL (0.550-1.02) Glomerular Filtration Rate Calc 130 mL/min (>90) BUN/Creatinine Ratio 16.9 (10.0-20.0) Serum Glucose 149 mg/dL (74-106) Calcium Level 10.0 mg/dL (8.7-10.4) Total Bilirubin 0.4 mg/dL (0.2-1.0) Aspartate Amino Transferase (AST) 15 U/L (13-40) Alanine Aminotransferase (ALT) 16 U/L (7-40) Alkaline Phosphatase 106 U/L (46-116) Total Protein 6.8 g/dL (5.7-8.2) Albumin 4.2 g/dL (3.2-4.8) Treponema pallidum Antibody Non-reactive (Negative) Hepatitis C Antibody Negative (Negative) Urine Color Light-yellow (Yellow) Urine Clarity Turbid (Clear) Urine pH 6.5 (5.0-9.0) Urine Specific [place] 1.014 (1.001-1.035) Urine Protein Negative (Negative) Urine Ketones Negative (Negative) Urine Blood Negative /uL (Negative) Urine Nitrite Negative (Negative) Urine Bilirubin Negative (Negative) Urine Urobilinogen Normal mg/dL (Negative) Urine Leukocyte Esterase 3+ /uL (Negative) Urine RBC 2 /hpf (0 - 4) Urine Microscopic WBC 13 /HPF (0-5) Urine Squamous Epithelial Cells Mod /hpf (<5) Urine Bacteria None seen /hpf (None Seen) Urine Glucose Normal mg/dL (Normal) Urine Opiates Screen Neg (NEGATIVE) Urine Fentanyl Screen Neg (NEGATIVE) Urine Barbiturates Screen Neg (NEGATIVE) Urine Phencyclidine Screen Neg (NEGATIVE) Urine Amphetamines Screen Neg (NEGATIVE) Urine Benzodiazepines Screen Neg (NEGATIVE) Urine Cocaine Screen Neg (NEGATIVE) Urine Cannabinoids Screen Neg (NEGATIVE) Other Laboratory Tests 09/09/24 08:31 Brief Hx & Hospital Course: Patient's cervix closed thick and high no sig response to two Cytotec therapies Operations or Procedures none Condition at Discharge: Good Final Diagnosis/Problems List reasuring US and T discharged home Discharge Disposition: Home Discharge Instruct/Medications Diet: Regular Activity: No Restrictions, As Tolerated Discharge Statement: "Patient was advised to return to the ER or call 911 if any headaches, dizziness, shortness of breath, chest pain, abdominal pain, bleeding, fevers, or worsening of medical condition. Patient was counseled about treatment plan, medications, possible side effects, patientverbalized understanding. All questions were answered to the best of my ability. This discharge took greater then 30 minutes in planning, reviewing documentation, counseling the patient, and discussing with other team members." DME: Diagnosis: Kick counts labor precautions+ ASSESSMENT ASSESSMENT Assessment Visit Coding OBGYN Date of Service: September 09, 2024 Billing Provider: GIULIANO MCKAY DO SENIOR SALES DIRECTOR Common Visit Codes: 23814-MIT/OBS SAME DATE (LOW), 72680-MDE/OBS SAME DATE (MOD), 89251-RSP/OBS SAME DATE (HIGH) SENIOR SALES DIRECTOR Procedure Codes: 09065-21- NON-STRESS TEST GIULIANO MCKAY DO September 10, 2024 05:13
--- NOTE | 2024-09-10 06:24 | DVHHP2 ---
OB CC & HPI Date Date of Admission: September 09, 2024 Chief Complaints: Reason for admission: induction of labor Past Medical History Cardiac: No pertinent Hx Pulmonary: No pertinent Hx Central Nervous System: No pertinent Hx GI: No pertinent Hx Hemotology/Oncology: No pertinent Hx Hepatobiliary: No pertinent Hx Psychiatric: No pertinent Hx Musculoskeletal: No pertinent Hx Rheumotologic: No pertinent Hx Infectious Disease: No peritnent Hx ENT: No pertinent Hx Renal/: No pertinent Hx Endocrine: No pertinent Hx Dermatology: No pertinent Hx Allergies: Coded Allergies: NO KNOWN ALLERGIES (Unverified , 01/31/22) Home Meds Active Scripts Cephalexin Monohydrate (Cephalexin) 500 Mg Cap, 1 CAP PO QID for 7 Days, #28 CAP 0 Refills Prov:PRASANNA BOBBY 04/10/24 Acetaminophen (Acetaminophen) 500 Mg Tab, 500 MG PO Q4HPRN, #30 TAB 0 Refills Prov:PRASANNA BOBBY 04/10/24 Reported Medications Vit W/ Fe Fum-Iron Po (Concept Dha) Cap, 1 CAP PO DAILY, #90 CAP 3 Refills 02/13/22 Current Medications Current Medications Medications (Trade) Dose Ordered Sig/Jayda Route PRN Reason Start Time Stop Time Status Last Admin Lactated Ringer's 1,000 ml @ 125 mls/hr Q8H IV 09/09/24 08:30 09/09/24 22:41 DC 09/09/24 09:36 Nalbuphine HCl (Nubain) 10 mg Q4HP PRN IV MODERATE PAIN (4-6 PAIN SCALE) 09/09/24 08:30 09/09/24 22:41 DC Penicillin G Potassium [id number] units/Dextrose 50 ml @ 100 mls/hr Q4H IV 09/09/24 12:30 09/09/24 22:41 DC Witch Parul (Tucks) 1 pad PRN PRN TOP PERINEAL AREA DISCOMFORT 09/09/24 08:30 09/09/24 22:41 DC Sodium Lauryl Sulfate (Phisoderm) 240 ml PRN PRN TOP PERINEAL AREA DISCOMFORT 09/09/24 08:30 09/09/24 22:41 DC Benzocaine (Dermoplast) 1 applic PRN PRN TOP PERINEAL AREA DISCOMFORT 09/09/24 08:30 09/09/24 22:41 DC Misoprostol (Cytotec) 50 mcg Q4HPRN PRN PO CERVICAL RIPENING 09/09/24 08:30 09/09/24 22:41 DC 09/09/24 13:35 Lidocaine HCl (Xylocaine) 20 ml ONCE PRN IJ PERINEAL AREA DISCOMFORT 09/09/24 08:30 09/09/24 22:41 DC Review of Systems Constitutional: No symptom reported Ears, Nose, & Throat: No symptom reported Eyes: No symptom reported Pulmonary/Respiratory: No symptom reported Cardiovascular: No symptom reported Gastrointestinal: No symptom reported Genitourinary: No symptom reported Musculoskeletal: No symptom reported Skin: No symptom reported Psychiatric: No symptom reported Endocrine: No symptom reported Hemotologic/Lymphatic: No symptom reported OB Plan Plan Admitting Diagnosis: Induction of labor POST DATES GIULIANO MCKAY DO September 10, 2024 06:24
[2024-09-11 00:07] LABS: Chlamydia Trachomatis, NAA Negative (Negative); Neisseria gonorrhoeae, NAA Negative (Negative)
== END 2024-09-09 20:14 | disposition home or self-care (01) ==
LOC: LDRP 08:07
PROVIDERS: ADMIT Obstetrics & Gynecology; ATTEND Obstetrics & Gynecology
DX: O48.0 Post-term pregnancy (principal); R79.1 Abnormal coagulation profile; Z98.890 Other specified postprocedural states; Z79.899 Other long term (current) drug therapy
CPT/HCPCS: 36415; 76818; 80053; 80307; 81001; 81002; 85025; 85610; 85730; 86780; 86803; 86850; 86900; 86901; 87491; 87591; 94762; 96360; 96361; G0378; J2540; J7060; 59025; 76819

== ENCOUNTER 2024-09-10 19:47 | Observation (INO) | payer BC ==
[2024-09-10 20:50] LABS: Fern Testing Negative
--- NOTE | 2024-09-10 21:03 | DVH ---
BIOPHYSICAL PROFILE HISTORY: Decreased movement TECHNIQUE: Multiple transabdominal real-time grayscale sonographic images through the gravid uterus of the fetus with duplex Doppler color flow and M-mode spectral analysis FINDINGS: BIOPHYSICAL PROFILE: breathing score: 2 movement score: 2 tone score: 2 Quantitative GARRET score: 2 (GARRET: 12.5 Cm.) Total score: 8/8 The cervix 3.69 cm and appears closed Single live fetus in cephalic presentation. heart rate 64 beats per minute. Posterior Grade 3 placenta without previa or abruption Single live fetus at 40 weeks 4 days Biophysical profile score 8/8 corresponding to an MINE of 09/06/2024 Estimated weight not calculated g IMPRESSION: 1. Biophysical profile score: 8/8
--- NOTE | 2024-09-10 22:20 | DVHDS2 ---
Physician Discharge Progress N Final Diagnosis: 23 yo IUP @ 40.4 weeks Intact membranes Operations or Procedures: Operations or Procedures S: Pt is a 23 yo IUP@40.4 wks in OB triage for possible leakage of fluid today 09/10/2024 @ 1700. Pt reports she had sexual intercourse before feeling the leakage of fluid, thinks it might also be urine. Pt feeling mild alpesh ogden contractions. Pt denies VB and endorses +FM. Pt denies FERGUSON/RUQ pain/visual disturbances. O: VSS Vaginal exam by RN: /-2, membrane sweep done with pts consent EFM: FHR 135 bpm, moderate variabilty with accels, no decels. Thiells: contractions q4-5minutes BPP 8/8 SSE by RN: Pooling neg and Nitrizine pos Laboratory Tests Test 09/10/24 20:00 09/10/24 21:08 Range/Units Amniotic Fluid Ferning Test Negative Placental [id number] Negative A: 23 yo @ 40.4 wks Category I EFM wellbeing established Intact amniotic membranes P: D/C home IOL scheduled on 09/14/2024 @ 2200 for post dates at [facility] per Dr. Roberts kick counts and Preeclampsia warning signs reviewed. Labor precautions given and when to return to the hospital. Other Interventions Other Interventions [place] [id number] Ph: [phone] DIAGNOSTIC IMAGING Diagnostic Imaging Report : [id number] Signed PATIENT: GM BERMUDEZ ACCT: [id number] UNIT: [id number] : 2000 LOC: [facility] ROOM / BED: TRIAGE3 / A AGE / SEX: 23 / F ADM STATUS: ADM IN SERVICE 05 ORDERING PHYSICIAN: EMELIA LOVETT CNM PROCEDURE(s): BPP - BIOPHYSICAL PROFILE REASON: Decreased movement ORDER NUMBER(s): [id number], ACCESSION NUMBER(s): [id number] BIOPHYSICAL PROFILE HISTORY: Decreased movement TECHNIQUE: Multiple transabdominal real-time grayscale sonographic images through the gravid uterus of the fetus with duplex Doppler color flow and M-mode spectral analysis FINDINGS: BIOPHYSICAL PROFILE: breathing score: 2 movement score: 2 tone score: 2 Quantitative GARRET score: 2 (GARRET: 12.5 Cm.) Total score: 8/8 The cervix 3.69 cm and appears closed Single live fetus in cephalic presentation. heart rate 64 beats per minute. Posterior Grade 3 placenta without previa or abruption Single live fetus at 40 weeks 4 days Biophysical profile score 8/8 corresponding to an MINE of 09/06/2024 Estimated weight not calculated g IMPRESSION: 1. Biophysical profile score: 8/8 ATED BY: ELLIS MYERS Jr., DO DICTATED DATE/TIME: 09/10/242100 SIGNED BY: ELLIS MYERS Jr., SIGNED DATE/TIME: 09/10/242100 Condition on Discharge: Stable Disposition: Home Discharge Instructions: Diet: Regular Activity: No Restrictions, As Tolerated Medications: see med list Follow Up Care: Specialist: IOL scheduled for 09/14/2024 @ 2200 at [facility]. Discharge Statement: "Patient was advised to return to the ER or call 911 if any headaches, dizziness, shortness of breath, chest pain, abdominal pain, bleeding, fevers, or worsening of medical condition. Patient was counseled about treatment plan, medications, possible side effects, patient�verbalized understanding. All questions were answered to the best of my ability. This discharge took greater then 30 minutes in planning, reviewing documentation, counseling the patient, and discussing with other team members." Visit Coding OBGYN Date of Service: September 11, 2024 Billing Provider: EMELIA LOVETT CNM ARC TRIMMER Common Visit Codes: [id number] INP/OBS CARE (HIGH) ARC TRIMMER Procedure Codes: 30460-46- NON-STRESS TEST SYLVIA BROWN MDWF September 10, 2024 22:20
== END 2024-09-10 22:32 | disposition home or self-care (01) ==
LOC: LDRP 19:47
PROVIDERS: ADMIT Obstetrics & Gynecology; ATTEND Obstetrics & Gynecology
DX: O36.8130 Decreased fetal movements, third trimester, not applicable or unspecified (principal); O48.0 Post-term pregnancy; Z98.890 Other specified postprocedural states; Z79.899 Other long term (current) drug therapy; Z3A.40 40 weeks gestation of pregnancy
CPT/HCPCS: 76818; 81002; 84112; 94760; G0378; Q0114; 59025; 76819

== ENCOUNTER 2024-09-14 19:06 | Observation (INO) | payer BC ==
--- NOTE | 2024-09-14 20:45 | DVH ---
ULTRASOUND BIOPHYSICAL PROFILE CLINICAL HISTORY: Post Dates COMPARISON: US BIOPHYSICAL PROFILE on DOS: 09/10/24 TECHNIQUE: Real-time grayscale, color flow and M-mode imaging of the gravid uterus is performed. FINDINGS: Single living intrauterine gestation. Cephalic presentation. heart rate 141 beats per minute. Amniotic fluid index: 13.8 cm Biophysical profile: 8 out of 8. (2 breathing, 2 activity, 2 tone, 2 GARRET) Placenta is posterior, no definite evidence of previa or abruption at this time. IMPRESSION: Biophysical profile scoring 8 out of 8.
--- NOTE | 2024-09-14 22:09 | DVHDS2 ---
Physician Discharge Progress N Final Diagnosis: IUP 41+ wk, post dates Secondary Diagnosis: Encounter for NST/BPP Operations or Procedures: Operations or Procedures NST/BPP/ GARRET all WNL Condition on Discharge: Stable Disposition: Home Discharge Instructions: Diet: Regular Activity: No Restrictions, As Tolerated Follow Up/Referral: Return in a.m for labor induction Medications: N/A Follow Up Care: Discharge Statement: "Patient was advised to return to the ER or call 911 if any headaches, dizziness, shortness of breath, chest pain, abdominal pain, bleeding, fevers, or worsening of medical condition. Patient was counseled about treatment plan, medications, possible side effects, patientverbalized understanding. All questions were answered to the best of my ability. This discharge took greater then 30 minutes in planning, reviewing documentation, counseling the patient, and discussing with other team members." Visit Coding OBGYN Date of Service: September 14, 2024 Billing Provider: SONIA COLLIER DO ELECTROCARDIOGRAPH OPERATOR Common Visit Codes: 49210-SIQ/OBS SAME DATE (MOD) SONIA COLLIER DO September 14, 2024 22:09
== END 2024-09-14 22:00 | disposition home or self-care (01) ==
LOC: LDRP 19:06
PROVIDERS: ADMIT Obstetrics & Gynecology; ATTEND Obstetrics & Gynecology
DX: O48.0 Post-term pregnancy (principal); Z98.890 Other specified postprocedural states; Z79.899 Other long term (current) drug therapy; Z3A.41 41 weeks gestation of pregnancy
CPT/HCPCS: 76818; 81002; 94760; G0378; 59025; 76819

== ENCOUNTER 2024-09-16 07:30 | Inpatient (IN) | payer BC ==
[~2024-09-16] VITALS: Ht 160 cm; Wt 108.9 kg
[2024-09-16] MEDS ORDERED: LIDOCAINE 2%HCL (LOCAL ANESTH.) INJ 20ML MDV IJ PRN (13:45)
[2024-09-16] MEDS ORDERED: BUTORPHANOL TARTRATE 2 MG/1 ML VIAL IV PRN ×2 (13:45)
[2024-09-16 14:38] LABS: Basophils # (auto) 0 10 ^3/uL (0-0.2); Basophils % (auto) 0.4 % (0.0-2.0); Eosinophils # (auto) 0.1 10 ^3/uL (0-0.8); Eosinophils % (auto) 0.7 % (0.0-7.0); Hematocrit 35.4 % (36.0-46.0); Hemoglobin 12.2 g/dL (12.2-16.2); Lymphocytes # (auto) 1.9 10 ^3/uL (0.4-5.4); Lymphocytes % (auto) 15.2 % (10.0-50.0); Mean Corpuscular Hemoglobin 31.1 pg (28.0-32.0); Mean Corpuscular Hgb Conc. 34.5 g/dL (32.0-36.0); Monocytes # (auto) 0.6 10 ^3/uL (0-1.3); Monocytes % (auto) 4.8 % (0.0-12.0); Neutrophils # (auto) 9.6 10 ^3/uL (1.6-8.6); Neutrophils % (auto) 78.9 % (37.0-80.0); Platelet Count (auto) 235 10^3/uL (140-450); Red Blood Cells 3.93 10^6/uL (4.0-5.20); Red Cell Distribution Width 13.6 % (11.8-14.3); White Blood Cell 12.2 10^3/uL (4.4-10.8)
[2024-09-16 14:54] LABS: INR 0.91 (0.9-1.15); Partial Thromboplastin Time 26.8 SEC (24.5-34.5); Prothrombin Time 9.7 sec (9.3-11.8)
[2024-09-16 14:57] LABS: Alanine Aminotransferase 12 U/L (7-40); Albumin 3.8 g/dL (3.2-4.8); Alkaline Phosphatase 101 U/L (46-116); Anion Gap 10 (5-15); Blood Urea Nitrogen 11 mg/dL (9-23); Carbon Dioxide 22 mmol/L (20-31); Chloride 106 mmol/L (98-107); Potassium 3.9 mmol/L (3.5-5.1); Sodium 138 mmol/L (136-145); Total Protein 6.1 g/dL (5.7-8.2)
[2024-09-16 14:58] LABS: Aspartate Aminotransferase 15 U/L (13-40); Bilirubin, Total 0.3 mg/dL (0.2-1.0); Glucose 145 mg/dL (74-106); Urine Amorphous Crystal FEW /hpf (None Seen); Urine Bacteria FEW /hpf (None Seen); Urine Blood Negative /uL (Negative); Urine Clarity Turbid (Clear); Urine Color Light-Yellow (Yellow); Urine Protein, UAD Negative (Negative); Urine Specific Gravity 1.018 (1.001-1.035); Urine Squamous Epithelial Cell MOD /hpf (<5); Urine Urobilinogen Normal (Negative); Urine WBC 5 /HPF (0-5); Urine pH 6.5 (5.0-9.0)
[2024-09-16 15:02] LABS: Amphetamine Screen, Urine Neg (NEGATIVE); Barbiturate Scree,Urine Neg (NEGATIVE); Benzodiazephine Screen, Urine Neg (NEGATIVE); Cannabinoid Screen, Urine Neg (NEGATIVE); Cocaine Screen, Urine Neg (NEGATIVE); Opiate Scree,Urine Neg (NEGATIVE); Phencyclidine Screen, Urine Neg (NEGATIVE)
--- NOTE | 2024-09-16 15:12 | DVH ---
LIMITED OB ULTRASOUND > 14 WKS: HISTORY: EFW TECHNIQUE: Multiple real-time grayscale images of the gravid uterus with duplex Doppler color flow an d M-mode spectral analysis. TRANSDUCER: FINDINGS: IUP single live fetus at 38 weeks 5 days based on composite averages of the BPD, head circumference, abdominal circumference and femur length Estimated weight 3721 grams heart rate 164 beats per minute GARRET 16.02 cm Cervix 3118 Cephalic Presentation Grade 3 posterior Placenta without previa or abruption. IMPRESSION: 1. IUP single live fetus at 38 weeks 5 days AUA corresponding to an MINE of 09/25/2024
--- NOTE | 2024-09-16 16:30 | DVHHP2 ---
OB CC & HPI Date Date of Admission: September 16, 2024 Patient Identification: : 2 Para: 1 EGA: 41.3 Chief Complaints: Reason for admission: induction of labor (Postdates) History of Present Complaints 23y IUP 41.4wk admitted for induction of labor for post dates EGA based on LMP c/w 8w4d US dating. uncomplicated. GBS positive EFW on admission 8lb 2oz. Past Medical History Cardiac: No pertinent Hx Pulmonary: No pertinent Hx Central Nervous System: No pertinent Hx GI: No pertinent Hx Hemotology/Oncology: No pertinent Hx Hepatobiliary: No pertinent Hx Psychiatric: No pertinent Hx Musculoskeletal: No pertinent Hx Rheumotologic: No pertinent Hx Infectious Disease: No peritnent Hx ENT: No pertinent Hx Renal/: No pertinent Hx Endocrine: No pertinent Hx Dermatology: No pertinent Hx Past Surgical History: No pertinent Hx OB History OB History Care: Good Care Ultrasounds: Normal mid trimester US Obstetrical Complications: None Medical Complications: None Allergies: Coded Allergies: NO KNOWN ALLERGIES (Unverified , 01/31/22) Home Meds Active Scripts Cephalexin Monohydrate (Cephalexin) 500 Mg Cap, 1 CAP PO QID for 7 Days, #28 CAP 0 Refills Prov:PRASANNA BOBBY 04/10/24 Acetaminophen (Acetaminophen) 500 Mg Tab, 500 MG PO Q4HPRN, #30 TAB 0 Refills Prov:PRASANNA BOBBY 04/10/24 Reported Medications Vit W/ Fe Fum-Iron Po (Concept Dha) Cap, 1 CAP PO DAILY, #90 CAP 3 Refills 02/13/22 Current Medications Current Medications Medications (Trade) Dose Ordered Sig/Jayda Route PRN Reason Start Time Stop Time Status Last Admin Lactated Ringer's 1,000 ml @ 125 mls/hr Q8H IV 09/16/24 13:45 Witch Parul (Tucks) 1 pad PRN PRN TOP PERINEAL AREA DISCOMFORT 09/16/24 13:45 Sodium Lauryl Sulfate (Phisoderm) 240 ml PRN PRN TOP PERINEAL AREA DISCOMFORT 09/16/24 13:45 Benzocaine (Dermoplast) 1 applic PRN PRN TOP PERINEAL AREA DISCOMFORT 09/16/24 13:45 Butorphanol Tartrate (Stadol Injection) 1 mg Q4HPRN PRN IV MODERATE PAIN (4-6 PAIN SCALE) 09/16/24 13:45 Butorphanol Tartrate (Stadol Injection) 2 mg Q4HPRN PRN IV SEVERE PAIN (7-10 PAIN SCALE) 09/16/24 13:45 Lidocaine HCl (Xylocaine) 20 ml ONCE PRN IJ PERINEAL AREA DISCOMFORT 09/16/24 13:45 Penicillin G Potassium [id number] units/Dextrose 50 ml @ 100 mls/hr Q4H IV 09/16/24 18:00 Family & Social History Family/Social History Blood Type: B+ Rubella: not immune RPR/VDRL: Negative GBS Status: Positive HBsAG: Negative Review of Systems Constitutional: No symptom reported Ears, Nose, & Throat: No symptom reported Eyes: No symptom reported Pulmonary/Respiratory: No symptom reported Cardiovascular: No symptom reported Gastrointestinal: No symptom reported Genitourinary: No symptom reported Musculoskeletal: No symptom reported Skin: No symptom reported Psychiatric: No symptom reported Endocrine: No symptom reported Hemotologic/Lymphatic: No symptom reported OB Admission Exam Physical Exam Vitals: Afeb VS stable HEENT: NCAT Heart: Rhythm Normal Abdomen: Gravid Extremities: Normal Reflexes: Normal Cervical Dilatation: 2cm Effacement: Other (60) Station: -3 Membranes: Intact Heart Rate: 130's Accelerations: Accelerations Present Decelerations: No Decelerations Short Term Variability: Present Senior Informatica Developer Variability: Average (6-25) Contractions on Admission: >10 Minutes Apart Intensity: Mild OB Plan Plan Admitting Diagnosis: 23y , IUP at 41.3 wk, Scheduled IOL for postdates GBS pos Morbid obesity BMI 42 EFW 8lb 2oz Categ 1 Tracing Plan: Induction Induction Methd: Cervidal protocol Other Plan: Cervidil placed at 16:25p in posterior fornix Indications for delivery discussed, informed consent obtained for treatment and delivery EFW 8lb 3oz., discussed risks of LGA, poss C/S for standard intrapartum indications reviewed. Visit Coding OBGYN Date of Service: September 16, 2024 Billing Provider: SONIA COLLIER DO TRAINING ASSISTANT Common Visit Codes: [id number] INP/OBS CARE (HIGH) SONIA COLLIER DO September 16, 2024 16:30
[2024-09-16] MEDS ORDERED: PENICILLIN G POTASSIUM 2,500,000 UNITS in D5W 5% 50 ML IV SCH (18:00)
[2024-09-16] MEDS: DERMOPLAST 60ML BOTTLE TOP PRN (18:52)
[2024-09-16] MEDS: PHISODERM TOP SOLN 240ML BTL TOP PRN (18:52)
[2024-09-16] MEDS: WITCH HAZEL-GLYCERIN PAD TOP PRN (18:52)
[2024-09-16] MEDS: LACTATED RINGER'S 1,000 ML IV SCH (18:53)
--- NOTE | 2024-09-17 02:11 | DVHPN2 ---
OB Labor Progress Note Date and Time Seen Date Seen: September 17, 2024 Time Seen: 02:09 Subjective Patient reports: No new complaints Objective Vital Signs Afeb VS stable Monitoring Method Monitoring Method: External Heart Rate Heart Rate Baseline: 130 Heart Rate Variability: Moderate Presence of FHR Accelerations: Yes Presence of FHR Decelerations: No Contractions Contractions Frequency: Occasional Contractions Intensity: Mild Contractions Resting Tone: Relaxed Membranes Membranes: Intact Vaginal Exam Vag Exam Deferred: Yes Medications Medications - Pitocin: No Medication - Epidural: No Lab Results Lab Results Current Medications Medications (Trade) Dose Ordered Sig/Jayda Start Time Stop Time Status Last Admin Dose Admin Lactated Ringer's 1,000 ml @ 125 mls/hr Q8H 09/16/24 13:45 09/16/24 18:53 125 MLS/HR Witch Parul (Tucks) 1 pad PRN PRN 09/16/24 13:45 09/16/24 18:52 1 PAD Sodium Lauryl Sulfate (Phisoderm) 240 ml PRN PRN 09/16/24 13:45 09/16/24 18:52 240 ML Benzocaine (Dermoplast) 1 applic PRN PRN 09/16/24 13:45 09/16/24 18:52 1 APPLIC Butorphanol Tartrate (Stadol Injection) 1 mg Q4HPRN PRN 09/16/24 13:45 Butorphanol Tartrate (Stadol Injection) 2 mg Q4HPRN PRN 09/16/24 13:45 Lidocaine HCl (Xylocaine) 20 ml ONCE PRN 09/16/24 13:45 Penicillin G Potassium 50 ml @ 100 mls/hr ONCE ONCE 09/16/24 14:00 09/16/24 14:32 DC Penicillin G Potassium [id number] units/Dextrose 50 ml @ 100 mls/hr Q4H 09/16/24 18:00 Dinoprostone (Cervidil Suppository) 1 supp ONCE ONCE 09/16/24 14:15 09/16/24 14:32 DC Laboratory Tests Test 09/16/24 14:26 09/16/24 14:20 Range/Units Treponema pallidum Antibody Non-reactive Negative White Blood Count 12.2 H 4.4-10.8 10^3/uL Red Blood Count 3.93 L 4.0-5.20 10^6/uL Hemoglobin 12.2 12.2-16.2 g/dL Hematocrit 35.4 L 36.0-46.0 % Mean Corpuscular Volume 90.0 80.0-100.0 fL Mean Corpuscular Hemoglobin 31.1 28.0-32.0 pg Mean Corpuscular Hemoglobin Concent 34.5 32.0-36.0 g/dL Red Cell Distribution Width 13.6 11.8-14.3 % Platelet Count 235 140-450 10^3/uL Mean Platelet Volume 7.9 6.9-10.8 fL Neutrophils (%) (Auto) 78.9 37.0-80.0 % Lymphocytes (%) (Auto) 15.2 10.0-50.0 % Monocytes (%) (Auto) 4.8 0.0-12.0 % Eosinophils (%) (Auto) 0.7 0.0-7.0 % Basophils (%) (Auto) 0.4 0.0-2.0 % Neutrophils # (Auto) 9.6 H 1.6-8.6 10 ^3/uL Lymphocytes # (Auto) 1.9 0.4-5.4 10 ^3/uL Monocytes # (Auto) 0.6 0-1.3 10 ^3/uL Eosinophils # (Auto) 0.1 0-0.8 10 ^3/uL Basophils # (Auto) 0 0-0.2 10 ^3/uL Nucleated Red Blood Cells 0.0 % Prothrombin Time 9.7 9.3-11.8 sec Prothrombin Time INR 0.91 0.9-1.15 Activated Partial Thromboplast Time 26.8 24.5-34.5 SEC Urine Color Light-yellow Yellow Urine Clarity Turbid H Clear Urine pH 6.5 5.0-9.0 Urine Specific [place]itt 1.018 1.001-1.035 Urine Protein Negative Negative Urine Ketones Negative Negative Urine Blood Negative Negative /uL Urine Nitrite Negative Negative Urine Bilirubin Negative Negative Urine Urobilinogen Normal Negative mg/dL Urine Leukocyte Esterase 1+ Negative /uL Urine RBC 1 0 - 4 /hpf Urine Microscopic WBC 5 0-5 /HPF Urine Squamous Epithelial Cells Mod <5 /hpf Urine Amorphous Crystals Few None Seen /hpf Urine Bacteria Few H None Seen /hpf Urine Glucose Normal Normal mg/dL Sodium Level 138 136-145 mmol/L Potassium Level 3.9 3.5-5.1 mmol/L Chloride Level 106 98-107 mmol/L Carbon Dioxide Level 22 20-31 mmol/L Anion Gap 10 5-15 Blood Urea Nitrogen 11 9-23 mg/dL Creatinine 0.50 L 0.550-1.02 mg/dL Glomerular Filtration Rate Calc 135 >90 mL/min BUN/Creatinine Ratio 22.0 H 10.0-20.0 Serum Glucose 145 H 74-106 mg/dL Calcium Level 9.0 8.7-10.4 mg/dL Total Bilirubin 0.3 0.2-1.0 mg/dL Aspartate Amino Transferase (AST) 15 13-40 U/L Alanine Aminotransferase (ALT) 12 7-40 U/L Alkaline Phosphatase 101 46-116 U/L Total Protein 6.1 5.7-8.2 g/dL Albumin 3.8 3.2-4.8 g/dL Urine Opiates Screen Neg NEGATIVE Urine Fentanyl Screen Neg NEGATIVE Urine Barbiturates Screen Neg NEGATIVE Urine Phencyclidine Screen Neg NEGATIVE Urine Amphetamines Screen Neg NEGATIVE Urine Benzodiazepines Screen Neg NEGATIVE Urine Cocaine Screen Neg NEGATIVE Urine Cannabinoids Screen Neg NEGATIVE Hepatitis C Antibody Negative Negative Assessment Assessment Induction of Labor IUP 41.5 wk GBS+ EFW 8lb 2oz Categ 1 Plan Plan Continue current care Cervidil to be removed after 12 hr Plan discussed with: Patient Visit Coding OBGYN Date of Service: September 17, 2024 Billing Provider: SONIA COLLIER DO HAND SANDER Common Visit Codes: [id number] INP/OBS CARE(MOD) SONIA COLLIER DO September 17, 2024 02:11
--- NOTE | 2024-09-17 09:38 | DVHPN2 ---
CNM Labor Progress Note Date and Time Seen Date Seen: September 17, 2024 Time Seen: 07:55 Subjective Patient reports: No new complaints Subjective Comment Pt consents to montemayor CRB after discussion. Objective Vital Signs VSS, see CPN Monitoring Method Monitoring Method: External Heart Rate Heart Rate Baseline: 135 Heart Rate Variability: Moderate Presence of FHR Accelerations: Yes Presence of FHR Decelerations: No Changes in Trends of Patterns: No Are all 5 Components of the FH: Yes Contractions Contractions Frequency: Other (q2-6 min) Duration of Contraction: 80 Contractions Intensity: Moderate Contractions Resting Tone: Relaxed Membranes Membranes: Intact Vaginal Exam Vag Exam Deferred: No (montemayor CRB inserted with 60ml sterile fluid) Vaginal Exam Dilation: 3 Vaginal Exam Effacement: 60 Vaginal Exam Station: -3 Medications Medications - Pitocin: No Medications - Pain Medications: PRN Medication - Epidural: No Medication - Other s/p Cervidil Lab Results Lab Results Vital Signs Date Time Temp Pulse Resp B/P (MAP) Pulse Ox O2 Delivery O2 Flow Rate FiO2 09/17/24 23:04 99.1 104 18 130/74 (92) 99 99.1 09/17/24 19:30 Room Air Current Medications Medications (Trade) Dose Ordered Sig/Jayda Start Time Stop Time Status Last Admin Dose Admin Lactated Ringer's 1,000 ml @ 125 mls/hr Q8H 09/16/24 13:45 09/17/24 16:28 DC 09/17/24 14:36 125 MLS/HR Magalys Teran (Tucks) 1 pad PRN PRN 09/16/24 13:45 09/16/24 18:52 1 PAD Sodium Lauryl Sulfate (Phisoderm) 240 ml PRN PRN 09/16/24 13:45 09/16/24 18:52 240 ML Benzocaine (Dermoplast) 1 applic PRN PRN 09/16/24 13:45 09/16/24 18:52 1 APPLIC Penicillin G Potassium 50 ml @ 100 mls/hr ONCE ONCE 09/16/24 14:00 09/16/24 14:32 DC 09/17/24 09:40 100 MLS/HR Penicillin G Potassium [id number] units/Dextrose 50 ml @ 100 mls/hr Q4H 09/16/24 18:00 09/17/24 11:56 DC Dinoprostone (Cervidil Suppository) 1 supp ONCE ONCE 09/16/24 14:15 09/16/24 14:32 DC 09/17/24 11:09 1 SUPP Oxytocin 1,000 ml @ 6 ml/hr Q24H 09/17/24 03:45 09/17/24 16:28 DC 09/17/24 11:32 6 ML/HR Oxytocin 500 ml @ 999 mls/hr Q31M ONCE 09/17/24 03:45 09/17/24 04:15 DC 09/17/24 17:26 999 MLS/HR Oxytocin 500 ml @ 125 mls/hr Q4H ONCE 09/17/24 04:15 09/17/24 08:14 DC 09/17/24 17:27 125 MLS/HR Naloxone HCl (Narcan) 0.2 mg PRN ONCE 09/17/24 10:00 09/17/24 10:26 DC Ephedrine Sulfate (ePHEDrine SULFATE) 10 mg PRN ONCE 09/17/24 10:00 09/17/24 10:26 DC Penicillin G Potassium [id number] units/Dextrose 50 ml @ 100 mls/hr Q4H 09/17/24 13:40 09/17/24 16:28 DC 09/17/24 13:36 100 MLS/HR Ibuprofen (Motrin Tablet) 600 mg Q6HP PRN 09/17/24 18:00 Acetaminophen (Tylenol Tablet) 650 mg Q6HPRN PRN 09/17/24 18:00 Prenat Multivit/ [place] Consultant/Iron/Folic Ac (Prenavite Tablet) 1 DAILY 09/18/24 10:00 Measles/Mumps/ Rubella Vaccine Live (M-M-R II W/ Diluent 10 Dos) 0.5 ml ONCE ONCE 09/18/24 07:00 09/18/24 07:01 Docusate Sodium (Colace Capsule) 200 mg HS PRN 09/17/24 20:00 09/17/24 22:17 200 MG Laboratory Tests Test 09/16/24 14:26 09/16/24 14:20 Range/Units Treponema pallidum Antibody Non-reactive Negative White Blood Count 12.2 H 4.4-10.8 10^3/uL Red Blood Count 3.93 L 4.0-5.20 10^6/uL Hemoglobin 12.2 12.2-16.2 g/dL Hematocrit 35.4 L 36.0-46.0 % Mean Corpuscular Volume 90.0 80.0-100.0 fL Mean Corpuscular Hemoglobin 31.1 28.0-32.0 pg Mean Corpuscular Hemoglobin Concent 34.5 32.0-36.0 g/dL Red Cell Distribution Width 13.6 11.8-14.3 % Platelet Count 235 140-450 10^3/uL Mean Platelet Volume 7.9 6.9-10.8 fL Neutrophils (%) (Auto) 78.9 37.0-80.0 % Lymphocytes (%) (Auto) 15.2 10.0-50.0 % Monocytes (%) (Auto) 4.8 0.0-12.0 % Eosinophils (%) (Auto) 0.7 0.0-7.0 % Basophils (%) (Auto) 0.4 0.0-2.0 % Neutrophils # (Auto) 9.6 H 1.6-8.6 10 ^3/uL Lymphocytes # (Auto) 1.9 0.4-5.4 10 ^3/uL Monocytes # (Auto) 0.6 0-1.3 10 ^3/uL Eosinophils # (Auto) 0.1 0-0.8 10 ^3/uL Basophils # (Auto) 0 0-0.2 10 ^3/uL Nucleated Red Blood Cells 0.0 % Prothrombin Time 9.7 9.3-11.8 sec Prothrombin Time INR 0.91 0.9-1.15 Activated Partial Thromboplast Time 26.8 24.5-34.5 SEC Urine Color Light-yellow Yellow Urine Clarity Turbid H Clear Urine pH 6.5 5.0-9.0 Urine Specific [place] 1.018 1.001-1.035 Urine Protein Negative Negative Urine Ketones Negative Negative Urine Blood Negative Negative /uL Urine Nitrite Negative Negative Urine Bilirubin Negative Negative Urine Urobilinogen Normal Negative mg/dL Urine Leukocyte Esterase 1+ Negative /uL Urine RBC 1 0 - 4 /hpf Urine Microscopic WBC 5 0-5 /HPF Urine Squamous Epithelial Cells Mod <5 /hpf Urine Amorphous Crystals Few None Seen /hpf Urine Bacteria Few H None Seen /hpf Urine Glucose Normal Normal mg/dL Sodium Level 138 136-145 mmol/L Potassium Level 3.9 3.5-5.1 mmol/L Chloride Level 106 98-107 mmol/L Carbon Dioxide Level 22 20-31 mmol/L Anion Gap 10 5-15 Blood Urea Nitrogen 11 9-23 mg/dL Creatinine 0.50 L 0.550-1.02 mg/dL Glomerular Filtration Rate Calc 135 >90 mL/min BUN/Creatinine Ratio 22.0 H 10.0-20.0 Serum Glucose 145 H 74-106 mg/dL Calcium Level 9.0 8.7-10.4 mg/dL Total Bilirubin 0.3 0.2-1.0 mg/dL Aspartate Amino Transferase (AST) 15 13-40 U/L Alanine Aminotransferase (ALT) 12 7-40 U/L Alkaline Phosphatase 101 46-116 U/L Total Protein 6.1 5.7-8.2 g/dL Albumin 3.8 3.2-4.8 g/dL Urine Opiates Screen Neg NEGATIVE Urine Fentanyl Screen Neg NEGATIVE Urine Barbiturates Screen Neg NEGATIVE Urine Phencyclidine Screen Neg NEGATIVE Urine Amphetamines Screen Neg NEGATIVE Urine Benzodiazepines Screen Neg NEGATIVE Urine Cocaine Screen Neg NEGATIVE Urine Cannabinoids Screen Neg NEGATIVE Hepatitis C Antibody Negative Negative Assessment Assessment A: 23yo IUP@41.4wks Induction of Labor for post term Category I EFM Intact Membranes GBS positive Plan Plan P: RN to apply traction to montemayor CRB q1hr and start IV pitocin per protocol monitoring per order Pain mgmt PRN Frequent position changes in and out of bed encouraged Limit SVE unless necessary Intrauterine resuscitation PRN Anticipate CNM will consult with Dr. Roberts PRN Plan discussed with: Patient, Spouse Visit Coding OBGYN Date of Service: September 17, 2024 Billing Provider: EMELIA LOVETT CNM COMPOSING ROOM SUPERVISOR Common Visit Codes: [id number] INP/OBS CARE(HIGH) EMELIA LOVETT CNM September 17, 2024 09:38
[2024-09-17] MEDS: PENICILLIN G POT 5MIL/D5 50ML 50 ML IV ONE (09:40)
[2024-09-17] MEDS: NALOXONE HCL 0.4 MG/ML VIAL IV ONE (10:00)
[2024-09-17] MEDS: ePHEDrine SULFATE 50 MG/ML AMP IV ONE (10:00)
[2024-09-17] MEDS: DINOPROSTONE 10MG VAG SUPP PV ONE (11:09)
[2024-09-17] MEDS: ROPIVACAINE HCL 200 ML ONE (11:11)
[2024-09-17] MEDS: LACT. RINGERS/OXYTOCIN 20UNITS 1,000 ML IV SCH (11:32)
--- NOTE | 2024-09-17 13:08 | DVHPN2 ---
CNM Labor Progress Note Date and Time Seen Date Seen: September 17, 2024 Time Seen: 13:05 Subjective Patient reports: Feels better Subjective Comment Comfortable after epidural Objective Vital Signs VSS, see CPN Monitoring Method Monitoring Method: External Heart Rate Heart Rate Baseline: 150 Heart Rate Variability: Moderate Presence of FHR Accelerations: Yes Presence of FHR Decelerations: Yes Heart Rate Type of Decel: Early Deceleraions (majority), Variable Decelerations (x1) Comment on Trends or Patterns: maternal position changed Are all 5 Components of the FH: Yes Contractions Contractions Frequency: Other (q2-4 min) Duration of Contraction: 60 Contractions Intensity: Moderate Contractions Resting Tone: Relaxed Membranes Membranes: Ruptured Amniotic Fluid Color: Part Mec (heavy) Vaginal Exam Vag Exam Deferred: Yes (SVE by RN: /) Medications Medications - Pitocin: Yes (6mu) Medication - Epidural: Yes Lab Results Lab Results Vital Signs Date Time Temp Pulse Resp B/P (MAP) Pulse Ox O2 Delivery O2 Flow Rate FiO2 09/17/24 23:04 99.1 104 18 130/74 (92) 99 99.1 09/17/24 19:30 Room Air Current Medications Medications (Trade) Dose Ordered Sig/Jayda Start Time Stop Time Status Last Admin Dose Admin Lactated Ringer's 1,000 ml @ 125 mls/hr Q8H 09/16/24 13:45 09/17/24 16:28 DC 09/17/24 14:36 125 MLS/HR Witch Parul (Tucks) 1 pad PRN PRN 09/16/24 13:45 09/16/24 18:52 1 PAD Sodium Lauryl Sulfate (Phisoderm) 240 ml PRN PRN 09/16/24 13:45 09/16/24 18:52 240 ML Benzocaine (Dermoplast) 1 applic PRN PRN 09/16/24 13:45 09/16/24 18:52 1 APPLIC Penicillin G Potassium 50 ml @ 100 mls/hr ONCE ONCE 09/16/24 14:00 09/16/24 14:32 DC 09/17/24 09:40 100 MLS/HR Penicillin G Potassium [id number] units/Dextrose 50 ml @ 100 mls/hr Q4H 09/16/24 18:00 09/17/24 11:56 DC Dinoprostone (Cervidil Suppository) 1 supp ONCE ONCE 09/16/24 14:15 09/16/24 14:32 DC 09/17/24 11:09 1 SUPP Oxytocin 1,000 ml @ 6 ml/hr Q24H 09/17/24 03:45 09/17/24 16:28 DC 09/17/24 11:32 6 ML/HR Oxytocin 500 ml @ 999 mls/hr Q31M ONCE 09/17/24 03:45 09/17/24 04:15 DC 09/17/24 17:26 999 MLS/HR Oxytocin 500 ml @ 125 mls/hr Q4H ONCE 09/17/24 04:15 09/17/24 08:14 DC 09/17/24 17:27 125 MLS/HR Naloxone HCl (Narcan) 0.2 mg PRN ONCE 09/17/24 10:00 09/17/24 10:26 DC Ephedrine Sulfate (ePHEDrine SULFATE) 10 mg PRN ONCE 09/17/24 10:00 09/17/24 10:26 DC Penicillin G Potassium [id number] units/Dextrose 50 ml @ 100 mls/hr Q4H 09/17/24 13:40 09/17/24 16:28 DC 09/17/24 13:36 100 MLS/HR Ibuprofen (Motrin Tablet) 600 mg Q6HP PRN 09/17/24 18:00 Acetaminophen (Tylenol Tablet) 650 mg Q6HPRN PRN 09/17/24 18:00 Prenat Multivit/ Jet Mechanic/Iron/Folic Ac (Prenavite Tablet) 1 DAILY 09/18/24 10:00 Measles/Mumps/ Rubella Vaccine Live (M-M-R II W/ Diluent 10 Dos) 0.5 ml ONCE ONCE 09/18/24 07:00 09/18/24 07:01 Docusate Sodium (Colace Capsule) 200 mg HS PRN 09/17/24 20:00 09/17/24 22:17 200 MG Laboratory Tests Test 09/16/24 14:26 09/16/24 14:20 Range/Units Treponema pallidum Antibody Non-reactive Negative White Blood Count 12.2 H 4.4-10.8 10^3/uL Red Blood Count 3.93 L 4.0-5.20 10^6/uL Hemoglobin 12.2 12.2-16.2 g/dL Hematocrit 35.4 L 36.0-46.0 % Mean Corpuscular Volume 90.0 80.0-100.0 fL Mean Corpuscular Hemoglobin 31.1 28.0-32.0 pg Mean Corpuscular Hemoglobin Concent 34.5 32.0-36.0 g/dL Red Cell Distribution Width 13.6 11.8-14.3 % Platelet Count 235 140-450 10^3/uL Mean Platelet Volume 7.9 6.9-10.8 fL Neutrophils (%) (Auto) 78.9 37.0-80.0 % Lymphocytes (%) (Auto) 15.2 10.0-50.0 % Monocytes (%) (Auto) 4.8 0.0-12.0 % Eosinophils (%) (Auto) 0.7 0.0-7.0 % Basophils (%) (Auto) 0.4 0.0-2.0 % Neutrophils # (Auto) 9.6 H 1.6-8.6 10 ^3/uL Lymphocytes # (Auto) 1.9 0.4-5.4 10 ^3/uL Monocytes # (Auto) 0.6 0-1.3 10 ^3/uL Eosinophils # (Auto) 0.1 0-0.8 10 ^3/uL Basophils # (Auto) 0 0-0.2 10 ^3/uL Nucleated Red Blood Cells 0.0 % Prothrombin Time 9.7 9.3-11.8 sec Prothrombin Time INR 0.91 0.9-1.15 Activated Partial Thromboplast Time 26.8 24.5-34.5 SEC Urine Color Light-yellow Yellow Urine Clarity Turbid H Clear Urine pH 6.5 5.0-9.0 Urine Specific [place] 1.018 1.001-1.035 Urine Protein Negative Negative Urine Ketones Negative Negative Urine Blood Negative Negative /uL Urine Nitrite Negative Negative Urine Bilirubin Negative Negative Urine Urobilinogen Normal Negative mg/dL Urine Leukocyte Esterase 1+ Negative /uL Urine RBC 1 0 - 4 /hpf Urine Microscopic WBC 5 0-5 /HPF Urine Squamous Epithelial Cells Mod <5 /hpf Urine Amorphous Crystals Few None Seen /hpf Urine Bacteria Few H None Seen /hpf Urine Glucose Normal Normal mg/dL Sodium Level 138 136-145 mmol/L Potassium Level 3.9 3.5-5.1 mmol/L Chloride Level 106 98-107 mmol/L Carbon Dioxide Level 22 20-31 mmol/L Anion Gap 10 5-15 Blood Urea Nitrogen 11 9-23 mg/dL Creatinine 0.50 L 0.550-1.02 mg/dL Glomerular Filtration Rate Calc 135 >90 mL/min BUN/Creatinine Ratio 22.0 H 10.0-20.0 Serum Glucose 145 H 74-106 mg/dL Calcium Level 9.0 8.7-10.4 mg/dL Total Bilirubin 0.3 0.2-1.0 mg/dL Aspartate Amino Transferase (AST) 15 13-40 U/L Alanine Aminotransferase (ALT) 12 7-40 U/L Alkaline Phosphatase 101 46-116 U/L Total Protein 6.1 5.7-8.2 g/dL Albumin 3.8 3.2-4.8 g/dL Urine Opiates Screen Neg NEGATIVE Urine Fentanyl Screen Neg NEGATIVE Urine Barbiturates Screen Neg NEGATIVE Urine Phencyclidine Screen Neg NEGATIVE Urine Amphetamines Screen Neg NEGATIVE Urine Benzodiazepines Screen Neg NEGATIVE Urine Cocaine Screen Neg NEGATIVE Urine Cannabinoids Screen Neg NEGATIVE Hepatitis C Antibody Negative Negative Assessment Assessment A: 23yo IUP@41.4wks Induction of Labor for post term Category I EFM Intact Membranes GBS positive Plan Plan P: Continue IV pitocin per protocol Continue IV PCN for GBS treatment monitoring per order Pain mgmt: epidural in place Frequent position changes in bed encouraged Limit SVE unless necessary Intrauterine resuscitation PRN Anticipate CNM will consult with Dr. Roberts PRN Plan discussed with: Patient, Spouse Visit Coding OBGYN Date of Service: September 17, 2024 Billing Provider: EMELIA LOVETT CNM STOCK MIXER Common Visit Codes: [id number] INP/OBS CARE(HIGH) EMELIA LOVETT CNM September 17, 2024 13:08
[2024-09-17] MEDS: PENICILLIN G POTASSIUM 2,500,000 UNITS in D5W 5% 50 ML IV SCH (13:36)
--- NOTE | 2024-09-17 16:28 | LDN2 ---
Labor and Delivery Note Date 09/17/24 Age 23 2 Para now 2 AB n/a EDC 09/06/2024 EGA 41.4 weeks Diagnosis IOL for postdates then Rubella NonImmune GBS positive- adequately treated Vaginal Delivery: VTX Vacuum Assisted: No Placenta: Spontaneous Sex: Female Weight 3665 grams Apgars 7/9 Nuchal Cord Transected: No Amniotic Fluid: Meconium Stained, Thick Anesthesia Epidural Episiotomy: No Extension: No Repaired with n/a EBL QBL: 200 mL Labs Blood Bank 09/16/24 14:20: Blood Type B POSITIVE Complications n/a Conditions Stable Clinical Laboratory Medical Director Dr. Gutierrez Comments/Significant Med Murali At 1557 this 23yo now delivered a viable Female by w/ APGARS 7/9. EVANGELINA presentation. RT present at bedside prior to delivery for thick meconium. placed skin to skin on pts chest. Cord clamped and cut after 1 minute for acuity. Cord gases collected, venous pH 7.236. Pitocin IV bolus started. Intact 3-vessel cord placenta delivered spontaneously, Artie. Placenta sent to pathology. Patient had epidural anesthesia. Cervix/vagina inspected (intact) and cliterourethral abrasion present which did not require suturing, hemostatic. Fundus at U-1, firm, midline, and light lochia. QBL 200ml. VSS. Count correct x2. Patient to care and baby to couplet care, both stable. Visit Coding OBGYN Date of Service: September 17, 2024 Billing Provider: EMELIA LOVETT CNM RUBBER STAMP MAKER Common Visit Codes: PROCEDURE ONLY RUBBER STAMP MAKER Procedure Codes: [id number] DEL INCLUDING SYLVIA BROWN STDZander MDWF September 17, 2024 16:28
[2024-09-17] MEDS: LACT. RINGERS/OXYTOCIN 20UNITS 500 ML IV ONE ×2 (17:26→17:27)
[2024-09-17] MEDS ORDERED: IBUPROFEN 600 MG TAB PO PRN (18:00)
[2024-09-17] MEDS ORDERED: ACETAMINOPHEN 325 MG TAB PO PRN (18:00)
[2024-09-17] MEDS: DOCUSATE SOD 100 MG CAP PO PRN (22:17)
[2024-09-17 22:37] VITALS: BP 122/57; PULSE 115; RESP 16; TEMP 98.1; O2SAT 99
[2024-09-17 23:04] VITALS: BP 130/74; PULSE 104; RESP 18; TEMP 99.1; O2SAT 99
--- NOTE | 2024-09-18 00:35 | DVHPN2 ---
Progress Note Date Seen: September 18, 2024 Subjective S: bleeding is less, eating food without issues, denies lightheaded/dizziness, pain well controlled with oral medications, no concerns with urinating, passing flatus, no BM yet, ambulating well, well vital signs Vital Sign Date Time Temp Pulse Resp B/P (MAP) Pulse Ox O2 Delivery O2 Flow Rate FiO2 09/17/24 23:04 99.1 104 18 130/74 (92) 99 99.1 09/17/24 19:30 Room Air Total Intake and Output 09/17/24 09/17/24 09/18/24 15:00 23:00 07:00 Intake Total 1100 ml 72.3 ml Output Total 1000 ml Balance 1100 ml -927.7 ml medications Current Medications Medications Dose Ordered Sig/Jayda Route Start Time Stop Time Status Last Admin Dose Admin Magalys Teran 1 pad PRN PRN TOP 09/16/24 13:45 09/16/24 18:52 1 PAD Sodium Lauryl Sulfate 240 ml PRN PRN TOP 09/16/24 13:45 09/16/24 18:52 240 ML Benzocaine 1 applic PRN PRN TOP 09/16/24 13:45 09/16/24 18:52 1 APPLIC Butorphanol Tartrate 1 mg Q4HPRN PRN IV 09/16/24 13:45 Cancel Butorphanol Tartrate 2 mg Q4HPRN PRN IV 09/16/24 13:45 Cancel Lidocaine HCl 20 ml ONCE PRN IJ 09/16/24 13:45 Cancel Ibuprofen 600 mg Q6HP PRN PO 09/17/24 18:00 Acetaminophen 650 mg Q6HPRN PRN PO 09/17/24 18:00 Prenat Multivit/ Watkins/Iron/Folic Ac 1 DAILY PO 09/18/24 10:00 Docusate Sodium 200 mg HS PRN PO 09/17/24 20:00 09/17/24 22:17 200 MG laboratory and microbiology Laboratory Tests 09/16/24 14:20 Test 09/16/24 14:20 Range/Units Serum Glucose 145 H 74-106 mg/dL Objective O: VSS Chest: heart sounds normal and lung sounds clear bilaterally Abd: soft, non-tender, fundus at U/firm/midline, active bowel sounds, no rebound or guarding Perineum: edges well approximated, no erythema/edema noted Ext: Non-tender, No edema, 2+ BLE DTRs Lochia: minimal See lab results Assessment/Plan A: 24yo now PPD#1 s/p Rh+ P: D/C home later today Rx sent to pharmacy precautions and preeclampsia warning signs reviewed F/U with [facility] office in 2 weeks Plan discussed with: Patient, Spouse Visit Coding OBGYN Date of Service: September 18, 2024 Billing Provider: EMELIA LOVETT CNM FITTER UP Common Visit Codes: [id number] INP/OBS CARE(MOD) EMELIA LOVETT CNM September 18, 2024 00:35
[2024-09-18 03:00] VITALS: BP 98/68; PULSE 96; RESP 17; TEMP 98.4; O2SAT 97
[2024-09-18 06:45] VITALS: BP 118/69; PULSE 85; RESP 18; TEMP 97.9; O2SAT 97
[2024-09-18 07:26] LABS: Basophils # (auto) 0 10 ^3/uL (0-0.2); Basophils % (auto) 0.3 % (0.0-2.0); Eosinophils # (auto) 0.1 10 ^3/uL (0-0.8); Eosinophils % (auto) 0.5 % (0.0-7.0); Hematocrit 32.4 % (36.0-46.0); Lymphocytes # (auto) 1.8 10 ^3/uL (0.4-5.4); Lymphocytes % (auto) 14.7 % (10.0-50.0); Mean Corpuscular Hgb Conc. 33.9 g/dL (32.0-36.0); Mean Corpuscular Volume 91.4 fL (80.0-100.0); Monocytes # (auto) 0.7 10 ^3/uL (0-1.3); Monocytes % (auto) 6.1 % (0.0-12.0); Neutrophils # (auto) 9.3 10 ^3/uL (1.6-8.6); Neutrophils % (auto) 78.4 % (37.0-80.0); Platelet Count (auto) 176 10^3/uL (140-450); Red Blood Cells 3.54 10^6/uL (4.0-5.20); Red Cell Distribution Width 13.8 % (11.8-14.3); White Blood Cell 11.9 10^3/uL (4.4-10.8)
[2024-09-18] MEDS ORDERED: PRENATAL VITAMIN TAB PO SCH (10:00)
[2024-09-18 11:00] VITALS: BP 162/78; PULSE 95; RESP 15; TEMP 98.5; O2SAT 97
[2024-09-18 15:00] VITALS: BP 110/55; PULSE 83; RESP 16; TEMP 98.9; O2SAT 97
--- NOTE | 2024-09-18 16:23 | DVHDS2 ---
Obstetrics Discharge Summary Obstetrics Discharge Summary Date of Admission: September 16, 2024 Date of Discharge: September 18, 2024 Reason For Admission: Induction of Labor Procedures: NST, Ultrasound Intrapartum Procedures: Spontaneous vaginal deliv Procedures: Hct/date: (09/18/24), Hgb/date: (09/18/24) Operative Complicat: None Discharge Diagnosis: Term -Delivered Discharge Information: Activity (as tolerated, no heavy lifting and nothing in the vagina for 6 weeks), Diet (Routine), Medications (Rx sent), Instructions (Routine), Discharge to (Home), Accompanied by (family), Discarge date (09/18/24) Visit Coding OBGYN Date of Service: September 18, 2024 Billing Provider: EMELIA LOVETT CNM NUT DEHYDRATOR OPERATOR Common Visit Codes: [id number] DISCH DAY <30MIN EMELIA LOVETT CNM September 18, 2024 16:23
[2024-09-18] MEDS ORDERED: IBU600T PO ×2 (16:24)
[2024-09-18] MEDS ORDERED: DOCU-265 PO ×2 (16:24)
[2024-09-18] MEDS: MEASLES, MUMPS & RUBELLA VAC(MMRII) 0.5ML SC ONE (16:58)
[2024-09-18 17:55] VITALS: BP 118/62; PULSE 80; TEMP 98.5; O2SAT 98
== END 2024-09-18 17:55 | disposition home or self-care (01) | DRG 807 ==
LOC: LDRP 13:15 → OBSVTOIN 13:20 → LDRP 09-17 23:14
PROVIDERS: ADMIT Obstetrics & Gynecology; ATTEND Obstetrics & Gynecology
PROC: 10E0XZZ Delivery of Products of Conception, External Approach (ICD-10-PCS; principal; 2024-09-17)
PROC: 3E0R3BZ Introduction of Anesthetic Agent into Spinal Canal, Percutaneous Approach (ICD-10-PCS; 2024-09-17)
PROC: 00HU33Z Insertion of Infusion Device into Spinal Canal, Percutaneous Approach (ICD-10-PCS; 2024-09-17)
DX: O48.0 Post-term pregnancy (principal); Z37.0 Single live birth; O99.824 Streptococcus B carrier state complicating childbirth; O99.214 Obesity complicating childbirth; E66.01 Morbid (severe) obesity due to excess calories; Z3A.41 41 weeks gestation of pregnancy; O77.0 Labor and delivery complicated by meconium in amniotic fluid
CPT/HCPCS: 36415; 59025; 59409; 62282; 76805; 80053; 80307; 81001; 81002; 85025; 85610; 85730; 86780; 86803; 86850; 86900; 86901; 94760; 96360; 96361; 96365; 96366; G0378; J2540; J2590; J7060

== ENCOUNTER 2024-11-21 06:35 | Emergency (ER) | payer BC ==
[~2024-11-21] VITALS: Ht 162.6 cm; Wt 107.1 kg
[~2024-11-21 06:35] MED LIST changes: -ACET500T58 PO; -CEPH500C PO; +DOCU-265 PO; +IBU600T PO
--- NOTE | 2024-11-21 06:54 | ED.PDOC ---
History of Present Illness HPI Comments A 24 Y/O F PRESENTS WITH C/C LEFT ARMPIT ABSCESS, WITH ASSOCIATED PAIN AND SWELLING. 2X DAY HISTORY OF SYMPTOMS FOLLOWING GRADUAL ONSET. PER PT, SHE WAS SHAVING HER LEFT AXILLA A FEW DAYS AGO. YESTERDAY, SHE STARTED HAVING A RED BUMPS ON LEFT AXILLA WITH PAIN AND IRRITATION. PT DENIES ANY FEVER, CHILLS, OR FURTHER ASSOCIATED SYMPTOMS. NO OTHER SYMPTOMS REPORTED AT THIS [facility] OF CARE. Chief Complaint: Breast pain Time Seen by MD: 06:47 Primary Care Provider: UNKNOWN Reviewed Notes: Nurses Notes, Medications, Allergies Allergies: Coded Allergies: NO KNOWN ALLERGIES (Unverified , 01/31/22) Home Meds Active Scripts Acetaminophen (Tylenol Extra Strength Fo) 500 Mg Tab, 1000 MG PO BID, #30 TAB Prov:ANYA CRUZ 11/21/24 Sulfamethoxazole W/Trimethopri (Bactrim Ds Tablet) 1 Tab Tb, 1 TAB PO BID, #20 TAB Prov:ANYA CRUZ 11/21/24 Cephalexin Monohydrate (Cephalexin) 500 Mg Cap, 1 CAP PO QID, #28 CAP Prov:ANYA CRUZ 11/21/24 Ibuprofen Micronized (MOTRIN TABLET) 600 Mg Tb, 600 MG PO Q6HP PRN for 20 Days, #80 TAB Prov:EMELIA LOVETT [facility] 09/18/24 Docusate Sodium (Docusate Sodium) 100 Mg Cap, 100 MG PO HS PRN for 30 Days, #30 CAP 2 Refills Prov:EMELIA LOVETT 09/18/24 Reported Medications Vit W/ Fe Fum-Iron Po (Concept Dha) Cap, 1 CAP PO DAILY, #90 CAP 3 Refills 02/13/22 Information Source: Patient Mode of Arrival: Ambulatory Severity: Moderate Timing: Days Duration: Since onset, Days Prehospital treatment: None Medication Refill: For: Pain (AND REDNESS ON LEFT AXILLA ) Past Medical History PAST MEDICAL HISTORY: Denies Surgical History: Denies all surgeries BAIT MAN History: No Pertinent BAIT MAN History Family History Family History: Unknown Social History Smoker: Non-Smoker Alcohol: Denies ETOH Use Drugs: Denies Drug Use Lives In: Home Constitutional: denies: chills, diaphoresis, fatigue, fever, malaise, sweats, weakness, others EENTM: denies: blurred vision, double vision, ear bleeding, ear discharge, ear drainage, ear pain, ear ringing, eye pain, eye redness, hearing loss, mouth pain, mouth swelling, nasal discharge, nose bleeding, nose congestion, nose pain, photophobia, tearing, throat pain, throat swelling, voice changes, others Respiratory: denies: cough, hemoptysis, orthopnea, SOB at rest, shortness of breath, SOB with excertion, stridor, wheezing, others Cardiovascular: denies: chest pain, dizzy spells, diaphoresis, Dyspnea on exertion, edema, irregular heart beat, left arm pain, lightheadedness, palpitations, PND, syncope, others Gastrointestinal: denies: abdomen distended, abdominal pain, blood streaked bowels, constipated, diarrhea, dysphagia, difficulty swallowing, hematemesis, melena, nausea, poor appetite, poor fluid intake, rectal bleeding, rectal pain, vomiting, others Genitourinary: denies: abnormal vagina bleeding, burning, dyspareunia, dysuria, flank pain, frequency, hematuria, incontinence, pain, , vagina discharge, urgency, others Neurological: denies: dizziness, fainting, headache, left sided numbness, left sided weakness, numbness, paresthesia, pre-existing deficit, right sided numbness, right sided weakness, seizure, speech problems, tingling, tremors, weakness, others Musculoskeletal: denies: back pain, gout, joint pain, joint swelling, muscle pain, muscle stiffness, neck pain, others Integumetry: reports: lumps (LEFT AXILLA ); denies: bruises, change in color, change in hair/nails, dryness, laceration, lesions, rash, wounds, others Allergic/Immunocompromised: denies: Difficulty Healing, Frequent Infections, Hives, Itching, others Hematologic/Lymphatic: denies: anemia, blood clots, easy bleeding, easy bruising, swollen glands, others Endocrine: denies: excessive hunger, excessive sweating, excessive thirst, excessive urination, flushing, intolerance to cold, intolerance to heat, unexplained weight gain, unexplained weight loss, others Psychiatric: denies: anxiety, bipolar disorder, depression, hopeless, panic disorder, schizophrenia, sleepless, suicidal, others All Other Systems: Reviewed and Negative ( PER HPI) Physical Exam General Appearance: No Apparent Distress, Obese HEENT: Normal ENT Inspection, PERRL/EOMI, Pharynx Normal, TMs Normal Neck: Full Range of Motion, Non-Tender, Normal, Normal Inspection Respiratory: Chest Non-Tender, Lungs Clear, No Accessory Muscle Use, No Respiratory Distress, Normal Breath Sounds Cardiovascular: No Edema, No JVD, No Murmur, No Gallop, Normal Peripheral Pulses, Regular Rate/Rhythm Breast Exam: Deferred Gastrointestinal: No Organomegaly, Non Tender, No Pulsatile Mass, Normal Bowel Sounds, Soft Genitalia: Deferred Pelvic: Deferred Rectal: Deferred Extremities: No calf tenderness, Normal capillary refill, Normal range of motion, No pedal edema, Tender (WITH A RED BUMP ON LEFT AXILLA. ) Musculoskeletal : Apperance: Normal Neurologic: Alert, collet making machine operator II-XII nml as Tested, No Motor Deficits, Normal Affect, Normal Mood, No Sensory Deficits Cerebellar Function: Normal Reflexes: Normal Skin: Dry, Normal Color, Warm, Other (A FEW SMALL BUMPS WITH LOCALIZED REDNESS, TENDERNESS AND HARDNESS ON LEFT AXILLA, NO OPEN WOUND AND PUS DRAINAGE. ) Peripheral Pulses: 2+ carotid (R), 2+ carotid (L) Lymphatic: No Adenopathy Was a procedure done? Was a procedure done?: No Differential Dx Considerations may include: INSECT BITE, CELLULITES, FOLICULITIS OF LEFT AXILLA X-Ray, Labs, Meds, VS Vital Signs Date Time Temp Pulse Resp B/P (MAP) Pulse Ox O2 Delivery O2 Flow Rate FiO2 11/21/24 06:46 98.3 86 16 145/49 (81) 97 98.3 Time of 1ST Reevaluation: 07:40 Reevaluation 1ST: Unchanged Patient Education/Counseling: Diagnosis, Treatment, Need For Follow Up Family Education/Counseling: Diagnosis, Treatment, No Family Present Medical Screening: No EMC Exist At This Time SEPSIS Sepsis Screen Vital Signs Date Time Temp Pulse Resp B/P (MAP) Pulse Ox O2 Delivery O2 Flow Rate FiO2 11/21/24 06:46 98.3 86 16 145/49 (81) 97 98.3 Departure 1 Departure Time of Disposition: 07:40 Impression: Primary Impression: Folliculitis of left axilla Disposition: 01 HOME / SELF CARE / HOMELESS Condition: Stable Additional Instructions: F/U PCP IN 2 DAYS RECHECK. IF CONDITION BECOME WORSE, RETURN TO ED [facility]. e-Prescriptions Acetaminophen (Tylenol Extra Strength Fo) 500 Mg Tab 1000 MG PO BID, #30 TAB Prov: ANYA CRUZ 11/21/24 Sulfamethoxazole W/Trimethopri (Bactrim Ds Tablet) 1 Tab Tb 1 TAB PO BID, #20 TAB Prov: ANYA CRUZ 11/21/24 Cephalexin Monohydrate (Cephalexin) 500 Mg Cap 1 CAP PO QID, #28 CAP Prov: ANYA CRUZ 11/21/24 Discharged With: Self Critical Care Note Critical Care Time?: No Stability Stability form required: No Heart Score Heart Score: Heart Score Response (Comments) Value History N/A 0 EKG N/A 0 Age N/A 0 Risk Factors N/A 0 Troponin N/A 0 Total 0 ANYA CRUZ Nov 21, 2024 06:54
[2024-11-21] MEDS ORDERED: BACDST PO (07:18)
[2024-11-21] MEDS ORDERED: CEPH500C PO (07:18)
[2024-11-21] MEDS ORDERED: ACET-1304 PO (07:18)
[2024-11-21 07:44] VITALS: BP 103/65; PULSE 85; RESP 18; TEMP 98.9; O2SAT 95
== END 2024-11-21 07:50 | disposition home or self-care (01) ==
LOC: ER 06:35
DX: L02.422 Furuncle of left axilla (principal)